=== PATIENT | male | born 1990 | race African-American/Black ===

== ENCOUNTER 2016-11-09 00:26 | Emergency (ER) | payer OTHER ==
[2016-11-09] MEDS ORDERED: Aspirin Low Dose CHEW TAB* 81 MG PO ONE (00:43)
--- NOTE | 2016-11-09 00:45 | ED ---
Araceli Griffith Erika, scribed for Marshall Valladares MD on 11/09/16 at 0045 . HPI Chest Pain - HPI Summary HPI Summary: Patient is a 26-year-old male presenting to the ED with a CC of constant chest pain for the past 10-12 hours. Patient reports that chest pain radiates into the left posterior shoulder blade and the left arm. Patient states he came in today because pain has never lasted this long before. 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 - History of Current Complaint Chief Complaint: EDChestPainROMI Time Seen by Provider: 11/09/16 00:40 Hx Obtained From: Patient Onset/Duration: Started Hours Ago, Atraumatic, Still Present Timing: Constant Current Severity: Moderate Pain Intensity: 9 Pain Scale Used: 0-10 Numeric Chest Pain Radiates: Yes Chest Pain Radiates To:: Shoulder - L, Arm - L Alleviating Factor(s): Nothing Associated Signs and Symptoms: Positive: Negative - Allergy/Home Medications Allergies/Adverse Reactions: Allergies Allergy/AdvReac Type Severity Reaction Status Date / Time Shellfish Allergy Allergy Severe Anaphylatic Verified 06/24/16 18:01 Shock Bee Venom Allergy Intermediate Swelling Verified 06/24/16 18:01 PMH/Surg Hx/FS Hx/Imm Hx Endocrine/Hematology History: Denies: Hx Diabetes, Hx Thyroid Disease Cardiovascular History: Reports: Hx Hypertension - MEDICATED Denies: Hx Congestive Heart Failure, Hx Deep Vein Thrombosis, Hx Myocardial Infarction, Hx Pacemaker/ICD Respiratory History: Denies: Hx Asthma, Hx Chronic Obstructive Pulmonary Disease (COPD), Hx Lung Cancer, Hx Pneumonia, Hx Pulmonary Embolism GI History: Denies: Hx Gall Bladder Disease, Hx Gastrointestinal Bleed, Hx Ulcer, Hx Urosepsis, Other GI Disorders History: Denies: Hx Kidney Stones, Hx Renal Disease, Other Problems/Disorders Sensory History: Denies: Hx Contacts or Glasses Opthamlomology History: Denies: Hx Contacts or Glasses Neurological History: Denies: Hx Dementia, Hx Migraine, Hx Seizures, Hx Transient Ischemic Attacks (TIA) Psychiatric History: Denies: Hx Anxiety, Hx Depression, Hx Schizophrenia, Hx Bipolar Disorder Infectious Disease History: No Infectious Disease History: Denies: Hx Clostridium Difficile, Hx Hepatitis, Hx Human Immunodeficiency Virus (HIV), Hx of Known/Suspected MRSA, Hx Shingles, Hx Tuberculosis, Hx Known/ Suspected VRE, Hx Known/Suspected VRSA, History Other Infectious Disease, Traveled Outside the [place] in Last 30 Days - Family History Known Family History: Positive: Hypertension - Social History Alcohol Use: Occasionally Hx Substance Use: No Substance Use Type: Reports: None Hx Tobacco Use: Yes Smoking Status (MU): Former Smoker Type: Cigarettes Amount Used/How Often: 1 cigarette/ day Length of Time of Smoking/Using Tobacco: 2014 Have You Smoked in the Last Year: Yes Review of Systems Negative: Fever Positive: Chest Pain - radiating into L arm and L shoulder All Other Systems Reviewed And Are Negative: Yes Physical Exam Triage Information Reviewed: Yes Vital Signs On Initial Exam: Initial Vitals Temp Pulse Resp BP Pulse Ox 97.6 F 70 18 143/101 100 11/09/16 00:28 11/09/16 00:28 11/09/16 00:28 11/09/16 00:28 11/09/16 00:28 Vital Signs Reviewed: Yes Appearance: Positive: Well-Appearing, No Pain Distress Skin: Positive: Warm Head/Face: Positive: Normal Head/Face Inspection Eyes: Positive: DARLYN ENT: Positive: Hearing grossly normal Neck: Positive: Supple Respiratory/Lung Sounds: Positive: Clear to Auscultation, Breath Sounds Present Cardiovascular: Positive: RRR. Negative: Murmur Abdomen Description: Positive: Nontender, Soft Bowel Sounds: Positive: Present Musculoskeletal: Positive: Strength/ROM Intact Neurological: Positive: Sensory/Motor Intact, Alert, Oriented to Person Place, Time Psychiatric: Positive: Affect/Mood Appropriate Diagnostics - Vital Signs Vital Signs Temp Pulse Resp BP Pulse Ox 11/09/16 00:28 97.6 F 70 18 143/101 100 - Laboratory Result Diagrams: 11/09/16 00:43 11/09/16 00:43 Lab Statement: Any lab studies that have been ordered have been reviewed, and results considered in the medical decision making process. 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 negative for thoracic aortic aneurysm or dissection. vague patchy infiltrates/pneumonitis noted in the right upper lobe. - EKG 00:37 Cardiac Rate: NL - at 68 bpm EKG Rhythm: Sinus Rhythm Re-Evaluation - Re-Evaluation First Eval Re-Evaluation Time: 02:37 Change: Improved Comment: Discussed imaging and lab results with patient. Agreeable with discharge. Chest Pain Course/Dx - Course Assessment/Plan: Patient is a 26 y/o M who presents to the ED with a CC of chest pain. CXR shows no acute findings. EKG shows NSR. D dimer is elevated at 758, so Chest CTA is ordered. CTA shows no PE. Pain significantly improves after morphine in the ED. Patient will be discharged home with follow up from his PCP. Patient is agreeable with this plan. - Diagnoses Provider Diagnoses: Chest pain Discharge - Discharge Plan Condition: Stable Disposition: HOME Patient Education Materials: Chest Pain (ED) Referrals: Joce Barnes MD [Primary Care Provider] - Additional Instructions: Please follow up with your PCP The documentation as recorded by the Araceli adle Erika accurately reflects the service I personally performed and the decisions made by me, Marshall Valladares MD.
[2016-11-09 00:53] LABS: Hematocrit 43 % (42-52); Hemoglobin 14.3 g/dl (14.0-18.0); Mean Corpuscular HGB Conc 33 g/dl (31-36); Mean Corpuscular Hemoglobin 27 pg (27-31); Mean Corpuscular Volume 83 fL (80-94); Mean Platelet Volume 10 um3 (7.4-10.4); Red Blood Count 5.22 10^6/ul (4.0-5.4); Red Cell Distribution Width 14 % (10.5-15); White Blood Count 7.2 10^3/ul (3.5-10.8)
[2016-11-09 00:55] LABS: Add Diff/Slide Review? Slide Review Added; Comments Flag Yes
[2016-11-09 01:09] LABS: Albumin 4.7 g/dL (3.2-5.2); BUN/Creatinine Ratio 8.9 (8-20); Calcium 9.8 mg/dL (8.6-10.3); EGFR African American 101.1 (>60); EGFR Non-African American 78.6 (>60); Globulin 3.2 g/dL (2-4); Potassium 3.8 mmol/L (3.5-5.0); Total Bilirubin 0.3 mg/dL (0.2-1.0); Total Protein 7.9 g/dL (6.4-8.9)
[2016-11-09 01:11] LABS: Troponin I 0.01 ng/mL (<0.04)
[2016-11-09] MEDS ORDERED: Iohexol 350* (CONTRAST) 500 ML MDV IV ONE (01:17)
[2016-11-09] MEDS ORDERED: Morphine INJ* 4 MG/ML 1 ML SYRINGE IV ONE (02:08)
[2016-11-09 02:48] VITALS: BP 139/101
--- NOTE | 2016-11-09 07:29 | RAD ---
INDICATION: Chest pain. COMPARISON: Comparison is made with a prior x-ray study from June 24, 2015. TECHNIQUE: Dual-energy PA and lateral views of the chest were obtained. FINDINGS: The heart is within normal limits in size. Mediastinal and hilar contours appear within normal limits. The lungs are clear. No pleural effusion is present. There is a [id number] dorsal scoliosis. IMPRESSION: NO EVIDENCE FOR ACTIVE CARDIOPULMONARY DISEASE.
--- NOTE | 2016-11-09 07:47 | RAD ---
INDICATION: Chest pain, elevated d-dimer. COMPARISON: Comparison is made with a prior CT angiogram of the chest from May 12, 2011, prior CT of the chest from November 07, 2016 and prior chest x-ray study from November 09, 2016. TECHNIQUE: A CT angiogram of the chest was performed with intravenous following intravenous injection of 74 ml of Omnipaque 350 nonionic contrast. Contiguous axial sections were obtained from the lung apices through the lung bases. Images were reconstructed in the coronal and sagittal planes. FINDINGS: There is relatively homogeneous opacification of the pulmonary arteries. No intraluminal filling defect or pulmonary embolism is seen. The heart is within normal limits in size. No pericardial effusion is present. There is mild ectasia of the proximal ascending aorta which is unchanged from the recent prior study. The aorta demonstrates homogeneous contrast opacification. There is no evidence for aortic dissection. No significant enlarged mediastinal or hilar lymph nodes are seen. There are patchy groundglass infiltrates present in the right upper lobe which are unchanged from the recent prior study. The lungs are otherwise clear. No pleural effusion is present. There is a ycqc-[id number]-kdatklow dorsal lumbar scoliosis. IMPRESSION: 1. NO EVIDENCE FOR PULMONARY EMBOLISM. 2. MILD ECTASIA OF THE PROXIMAL ASCENDING AORTA, UNCHANGED. 3. PATCHY GROUNDGLASS INFILTRATES IN THE RIGHT UPPER LOBE MOST CONSISTENT WITH PNEUMONIA. SUGGEST CLINICAL CORRELATION AND FOLLOW-UP CHEST X-RAYS TO RESOLUTION.
== END 2016-11-09 02:46 | disposition home or self-care (01) ==
LOC: ED 00:26
DX: R07.9 Chest pain, unspecified (principal); M25.512 Pain in left shoulder; Z87.891 Personal history of nicotine dependence
CPT/HCPCS: 36415; 71020; 71275; 80053; 83605; 83735; 84484; 85025; 85379; 93005; 96374; 99283; A9270-GY; J2270; Q9967

== ENCOUNTER 2017-05-15 09:42 | Emergency (ER) | payer SELFPAY | END 2017-05-15 10:10 | disposition left against medical advice (07) | LOC: UCEAST 09:42 | DX: Z53.21 Procedure and treatment not carried out due to patient leaving prior to being seen by health care provider (principal) ==

== ENCOUNTER 2017-09-27 15:14 | Emergency (ER) | payer OTHER ==
[2017-09-27 16:01] VITALS: BP 128/85
--- NOTE | 2017-09-27 16:11 | UC ---
Skin Complaint HPI - HPI Summary HPI Summary: Pt presents with swelling on penis since last night. He tells me that he was having intercourse with his and they tried a new lubrication. Later that night pt had penile swelling. No redness or pain. This morning the swelling was still present and he became concerned. Denies fever, chills, trouble urinating, dysuria, hematuria, redness, or pain. - History of Current Complaint Chief Complaint: UCGU Time Seen by Provider: 09/27/17 16:11 Stated Complaint: PRIVATE ISSUE Hx Obtained From: Patient Onset/Duration: Sudden Onset Skin Exposure Onset/Duration: Hours Ago Timing: Constant Current Severity: None Pain Intensity: 0 - Allergy/Home Medications Allergies/Adverse Reactions: Allergies Allergy/AdvReac Type Severity Reaction Status Date / Time bee venom protein (honey bee) Allergy Swelling Verified 09/27/17 16:02 shellfish derived Allergy Anaphylatic Verified 09/27/17 16:02 Shock Review of Systems Constitutional: Negative Skin: Other - Swelling to penis ENT: Negative Respiratory: Negative Cardiovascular: Negative Gastrointestinal: Negative Neurological: Negative Psychological: Negative All Other Systems Reviewed And Are Negative: Yes PMH/Surg Hx/FS Hx/Imm Hx Previously Healthy: Yes Cardiovascular History: Hypertension Other History Of: Negative For: HIV, Hepatitis B, Hepatitis C - Surgical History Surgical History: None - Family History Known Family History: Positive: Unknown, Hypertension - Social History Occupation: Employed Full-time Lives: With Family Alcohol Use: Occasionally Substance Use Type: None Smoking Status (MU): Former Smoker Type: Cigarettes Amount Used/How Often: 1 cigarette/ day Length of Time of Smoking/Using Tobacco: 2015 Have You Smoked in the Last Year: Yes Household Exposure Type: Cigarettes Physical Exam Triage Information Reviewed: Yes Appearance: Well-Appearing, No Pain Distress, Well-Nourished Vital Signs: Initial Vital Signs Temp 98.6 F 09/27/17 15:58 Pulse 72 09/27/17 15:58 Resp 12 09/27/17 15:58 BP 128/85 09/27/17 15:58 Pulse Ox 100 09/27/17 15:58 Vital Signs Reviewed: Yes Neck: Positive: Supple, Nontender, No Lymphadenopathy Respiratory: Positive: Lungs clear, Normal breath sounds, No respiratory distress Cardiovascular: Positive: RRR, No Murmur, Pulses Normal Neurological: Positive: Alert Psychological: Positive: Age Appropriate Behavior - Additional Comments Genital exam: Foreskin of penis is with moderate edema. Circumcised. No erythema or skin breakdown. NTTP. No scrotal pain/masses, lesions, ulcerations, or penile discharge. Course/Dx - Course Course Of Treatment: Suspect contact dermatitis from recent lube use. Will place on 5 days of prednisone and advised to monitor for worsening symptoms - if so, go to ED. - Diagnoses Provider Diagnoses: Contact dermatitis penis Discharge - Discharge Plan Condition: Stable Disposition: HOME Prescriptions: predniSONE TAB* [Deltasone TAB*] 50 mg PO DAILY #5 tab Patient Education Materials: General Allergic Reaction (ED) Referrals: Joce Barnes MD [Primary Care Provider] - Additional Instructions: If you develop a fever, shortness of breath, chest pain, new or worsening symptoms - please call your PCP or go to the ED. 1) If you develop trouble urinating, increased swelling, discharge, redness, or bleeding - please go to the ER.
== END 2017-09-27 16:25 | disposition home or self-care (01) ==
LOC: UCEAST 15:14
DX: L25.8 Unspecified contact dermatitis due to other agents (principal); Z87.891 Personal history of nicotine dependence
CPT/HCPCS: 99212; G0463

== ENCOUNTER 2018-11-30 14:51 | Emergency (ER) | payer OTHER ==
[2018-11-30 15:00] VITALS: BP 160/105
--- NOTE | 2018-11-30 15:25 | UC ---
Throat Pain/Nasal Emanuel HPI - HPI Summary HPI Summary: 28 yo male with sore throat and fever x 2 days out of BP meds x mos no CP or sob, no LEO - History of Current Complaint Chief Complaint: UCGeneralIllness Stated Complaint: SORE THROAT, AND CHILLS Time Seen by Provider: 11/30/18 14:52 Hx Obtained From: Patient Onset/Duration: Gradual Onset Severity: Moderate Pain Intensity: 5 Pain Scale Used: 0-10 Numeric Cough: None Associated Signs & Symptoms: Positive: Fever - Epiglottits Risk Factors Epiglottis Risk Factors: Negative - Allergies/Home Medications Allergies/Adverse Reactions: Allergies Allergy/AdvReac Type Severity Reaction Status Date / Time bee venom protein (honey bee) Allergy Swelling Verified 11/30/18 15:00 shellfish derived Allergy Anaphylatic Verified 11/30/18 15:00 Shock Home Medications: Home Medications Acetaminophen [Tylenol] 2 tab PO ONCE PRN 11/30/18 [History Confirmed 11/30/18] amLODIPine TAB* [Norvasc 5 mg TAB*] 10 mg PO DAILY 11/30/18 [History Confirmed 11/30/18] PMH/Surg Hx/FS Hx/Imm Hx Previously Healthy: Yes Cardiovascular History: Hypertension Other History Of: Negative For: HIV, Hepatitis B, Hepatitis C - Surgical History Surgical History: None - Family History Known Family History: Positive: Hypertension - Social History Alcohol Use: Rare Substance Use Type: None Smoking Status (MU): Former Smoker Type: Cigarettes Amount Used/How Often: 1 cigarette/ day Length of Time of Smoking/Using Tobacco: 2015 Have You Smoked in the Last Year: Yes Household Exposure Type: Cigarettes Review of Systems All Other Systems Reviewed And Are Negative: Yes Constitutional: Positive: Fever, Chills Skin: Positive: Negative Eyes: Positive: Negative ENT: Positive: Sore Throat Respiratory: Positive: Negative Gastrointestinal: Positive: Negative Genitourinary: Positive: Negative Motor: Positive: Negative Musculoskeletal: Positive: Negative, Myalgia Neurological: Positive: Negative Psychological: Positive: Negative Physical Exam Triage Information Reviewed: Yes Appearance: Well-Appearing, No Pain Distress, Well-Nourished Vital Signs: Initial Vital Signs Temp 98.8 F 11/30/18 14:51 Pulse 104 11/30/18 14:51 Resp 18 11/30/18 14:51 BP 160/105 11/30/18 14:51 Pulse Ox 97 11/30/18 14:51 Vital Signs Reviewed: Yes Eyes: Positive: Conjunctiva Clear ENT: Positive: Hearing grossly normal, Pharyngeal erythema, Uvula midline. Negative: Nasal congestion, Nasal drainage, Tonsillar exudate, Trismus, Muffled voice, Hoarse voice Dental Exam: Normal Neck: Positive: Supple, Enlarged Nodes @ Respiratory: Positive: Lungs clear, Normal breath sounds, No respiratory distress Cardiovascular: Positive: RRR, No Murmur Abdominal Exam: Normal Musculoskeletal: Positive: ROM Intact, No Edema Neurological: Positive: Alert Psychological Exam: Normal Skin Exam: Normal Throat Pain/Nasal Course/Dx - Course Course Of Treatment: strep + - Differential Dx/Diagnosis Provider Diagnosis: Strep throat, Hypertension Discharge - Sign-Out/Discharge Documenting (check all that apply): Patient Departure All imaging exams completed and their final reports reviewed: No Studies - Discharge Plan Condition: Stable Disposition: HOME Prescriptions: Amlodipine Besylate [Norvasc] 10 mg PO DAILY #30 tablet Amoxicillin PO (*) [Amoxicillin 875 MG (*)] 875 mg PO BID #20 tab Lisinopril TAB* [Prinivil TAB 10 MG*] 20 mg PO DAILY #30 tab Patient Education Materials: Strep Throat (ED) Forms: *Work Release Referrals: [facility] [Outside] - 2 Weeks - Billing Disposition and Condition Condition: STABLE Disposition: Home
== END 2018-11-30 15:30 | disposition home or self-care (01) ==
LOC: UCEAST 14:51
DX: J02.0 Streptococcal pharyngitis (principal); I10 Essential (primary) hypertension; Z91.030 Bee allergy status; Z91.013 Allergy to seafood; Z87.891 Personal history of nicotine dependence
CPT/HCPCS: 87651; 99212; G0463

== ENCOUNTER 2018-12-19 20:47 | Emergency (ER) | payer OTHER ==
[2018-12-19] MEDS ORDERED: Lidocaine 2% VISCOUS* 15 ML UDC PO ONE (22:13)
[2018-12-19] MEDS ORDERED: Al Hydrox/Mg Hydrox/Simet LIQ* 30 ML UDC PO ONE (22:13)
[2018-12-19] MEDS ORDERED: Pantoprazole TAB * 40 MG TAB PO ONE (22:14)
--- NOTE | 2018-12-19 22:14 | ED ---
HPI Chest Pain - HPI Summary HPI Summary: This patient is a 28 year old M presenting to [facility] with a chief complaint of midsternal chest pain radiating to the back since 1700 last night that worsens with swallowing and laying down. Pain rated 7/10 in severity. Reports nausea. Denies SOB and vomiting. Symptoms improved with acid reflux medication. PMHx of HTN. Patient had 81mg ASA today. - History of Current Complaint Chief Complaint: EDChestPainROMI Time Seen by Provider: 12/19/18 22:06 Hx Obtained From: Patient Onset/Duration: Started Hours Ago Time of Onset: 17:00 Timing: Constant Pain Intensity: 7 Pain Scale Used: 0-10 Numeric Chest Pain Location: Mid Sternal Chest Pain Radiates: Yes Chest Pain Radiates To:: Back Aggravating Factor(s): Recumbent Position, Other: - swallowing Alleviating Factor(s): OTC Meds Associated Signs and Symptoms: Positive: Chest Pain, Nausea. Negative: Shortness of Breath, Vomiting - Allergy/Home Medications Allergies/Adverse Reactions: Allergies Allergy/AdvReac Type Severity Reaction Status Date / Time bee venom protein (honey bee) Allergy Swelling Verified 11/30/18 15:00 shellfish derived Allergy Anaphylatic Verified 11/30/18 15:00 Shock PMH/Surg Hx/FS Hx/Imm Hx Endocrine/Hematology History: Denies: Hx Diabetes, Hx Thyroid Disease Cardiovascular History: Reports: Hx Hypertension Denies: Hx Congestive Heart Failure, Hx Deep Vein Thrombosis, Hx Myocardial Infarction, Hx Pacemaker/ICD Respiratory History: Denies: Hx Asthma, Hx Chronic Obstructive Pulmonary Disease (COPD), Hx Lung Cancer, Hx Pneumonia, Hx Pulmonary Embolism GI History: Denies: Hx Gall Bladder Disease, Hx Gastrointestinal Bleed, Hx Ulcer, Hx Urosepsis, Other GI Disorders History: Denies: Hx Kidney Stones, Hx Renal Disease, Other Problems/Disorders Sensory History: Denies: Hx Contacts or Glasses Opthamlomology History: Denies: Hx Contacts or Glasses Neurological History: Denies: Hx Dementia, Hx Migraine, Hx Seizures, Hx Transient Ischemic Attacks (TIA) Psychiatric History: Denies: Hx Anxiety, Hx Depression, Hx Schizophrenia, Hx Bipolar Disorder - Immunization History Date of Tetanus Vaccine: unk Date of Influenza Vaccine: none Infectious Disease History: No Infectious Disease History: Denies: Hx Clostridium Difficile, Hx Hepatitis, Hx Human Immunodeficiency Virus (HIV), Hx of Known/Suspected MRSA, Hx Shingles, Hx Tuberculosis, Hx Known/ Suspected VRE, Hx Known/Suspected VRSA, History Other Infectious Disease, Traveled Outside the [place] in Last 30 Days - Family History Known Family History: Positive: Hypertension - Social History Alcohol Use: Rare Hx Substance Use: No Substance Use Type: Reports: None Hx Tobacco Use: Yes Smoking Status (MU): Former Smoker Type: Cigarettes Amount Used/How Often: 1 cigarette/ day Length of Time of Smoking/Using Tobacco: 2014 Have You Smoked in the Last Year: Yes Review of Systems Positive: Chest Pain Negative: Shortness Of Breath Positive: Nausea. Negative: Vomiting All Other Systems Reviewed And Are Negative: Yes Physical Exam - Summary Physical Exam Summary: VITAL SIGNS: Reviewed. GENERAL: Patient is a well-developed and nourished male who is lying comfortable in the stretcher. Patient is not in any acute respiratory distress. HEAD AND FACE: No signs of trauma. No ecchymosis, hematomas or skull depressions. No sinus tenderness. EYES: PERRLA, EOMI x 2, No injected conjunctiva, no nystagmus. EARS: Hearing grossly intact. Ear canals and tympanic membranes are within normal limits. MOUTH: Oropharynx within normal limits. NECK: Supple, trachea is midline, no adenopathy, no JVD, no carotid bruit, no c- spine tenderness, neck with full ROM CHEST: Symmetric, no tenderness at palpation LUNGS: Clear to auscultation bilaterally. No wheezing or crackles. CVS: Regular rate and rhythm, S1 and S2 present, no murmurs or gallops appreciated. ABDOMEN: Soft, non-tender. No signs of distention. No rebound no guarding, and no masses palpated. Bowel sounds are normal. EXTREMITIES: FROM in all major joints, no edema, no cyanosis or clubbing. NEURO: Alert and oriented x 3. No acute neurological deficits. Speech is normal and follows commands. SKIN: Dry and warm Triage Information Reviewed: Yes Vital Signs On Initial Exam: Initial Vitals Temp Pulse Resp BP Pulse Ox 97.6 F 80 18 159/97 99 12/19/18 20:50 12/19/18 20:50 12/19/18 20:50 12/19/18 20:50 12/19/18 20:50 Vital Signs Reviewed: Yes Diagnostics - Vital Signs Vital Signs Temp Pulse Resp BP Pulse Ox 12/19/18 20:50 97.6 F 80 18 159/97 99 - Laboratory Result Diagrams: 12/19/18 22:26 12/19/18 22:26 Lab Statement: Any lab studies that have been ordered have been reviewed, and results considered in the medical decision making process. - EKG 2057 Cardiac Rate: NL - 67 BPM EKG Rhythm: Sinus Rhythm Summary of EKG Findings: Normal axis. Normal interval. No ischemic changes Chest Pain Course/Dx - Course Course Of Treatment: 28 year old M with a chief complaint of midsternal chest pain radiating to the back since 1700 last night that worsens with swallowing and laying down. Symptoms improved with acid reflux medication. Patient is given Protonix, viscous lidocaine, and Maalox with improved symptoms. Bloodwork is WNL. Patient is given a rx for Protonix and will be discharged home. Patient is agreeable with this plan. - Diagnoses Provider Diagnoses: Atypical chest pain, Acid reflux Discharge - Sign-Out/Discharge Documenting (check all that apply): Patient Departure - discharge Patient Received Moderate/Deep Sedation with Procedure: No - Discharge Plan Condition: Good Disposition: HOME Prescriptions: Pantoprazole TAB * [Protonix TAB*] 40 mg PO DAILY #30 tab Patient Education Materials: Chest Pain (ED), Gastroesophageal Reflux Disease ( ED) Referrals: No Primary Care Phys,NOPCP [Primary Care Provider] - [facility] [place] [facility] [Outside] - 2 Weeks (Contact the [facility] Physician referral number to set up care with a primary provider. ) Additional Instructions: RETURN TO THE EMERGENCY DEPARTMENT FOR CHANGING OR WORSENING SYMPTOMS. - Billing Disposition and Condition Condition: GOOD Disposition: Home - Attestation Statements Document Initiated by Varun: Yes Documenting Scribe: Rachael Horner Provider For Whom Varun is Documenting (Include Credential): Brittaney Murillo MD Scribe Attestation: Rachael Griffith, evonneed for Brittaney Murillo MD on 12/20/18 at 0350. Scribe Documentation Reviewed: Yes Provider Attestation: The documentation as recorded by the Rachael dale accurately reflects the service I personally performed and the decisions made by me, Brittaney Murillo MD Status of Scribe Document: Viewed
[2018-12-19 22:38] LABS: Hematocrit 43 % (42-52); Mean Corpuscular HGB Conc 33 g/dL (31-36); Mean Corpuscular Hemoglobin 28 pg (27-31); Mean Corpuscular Volume 84 fL (80-94); Mean Platelet Volume 9.8 fL (7.4-10.4); Platelet Count 165 10^3/uL (150-450); Red Cell Distribution Width 14 % (10.5-15); White Blood Count 5.3 10^3/uL (3.5-10.8)
[2018-12-19 22:50] LABS: Albumin 4.6 g/dL (3.2-5.2); Albumin/Globulin Ratio 1.4 (1-3); BUN/Creatinine Ratio 11.6 (8-20); Calcium 9.9 mg/dL (8.6-10.3); EGFR African American 113.4 (>60); EGFR Non-African American 93.7 (>60); Globulin 3.4 g/dL (2-4); Potassium 3.8 mmol/L (3.5-5.0); Total Bilirubin 0.4 mg/dL (0.2-1.0)
[2018-12-19 22:52] LABS: Troponin I 0.01 ng/mL (<0.04)
[2018-12-19 23:23] LABS: ABS Eosinophils 0.3 10^3/ul (0-0.6); ABS Lymphocytes 1.6 10^3/ul (1.0-4.8); ABS Monocytes 0.5 10^3/ul (0-0.8); ABS Neutrophils 2.8 10^3/ul (1.5-7.7); Eosinophil % 5.7 %; Lymphocyte % 31.1 %; Nucleated Red Blood Cells % 0.1
[2018-12-19 23:58] VITALS: BP 120/84
== END 2018-12-19 23:56 | disposition home or self-care (01) ==
LOC: ED 20:47
DX: K21.9 Gastro-esophageal reflux disease without esophagitis (principal); R07.89 Other chest pain; R11.0 Nausea; I10 Essential (primary) hypertension; Z87.891 Personal history of nicotine dependence
CPT/HCPCS: 36415; 80053; 82150; 83690; 84484; 85025; 93005; 99283; A9270-GY

== ENCOUNTER 2018-12-23 18:59 | Emergency (ER) | payer OTHER ==
[2018-12-23 19:10] VITALS: BP 150/99
--- NOTE | 2018-12-23 19:29 | UC ---
Cardiac HPI - HPI Summary HPI Summary: 28 yo with uncontrolled hypertension, hs been off meds until about a month ago. Past triple treatment of HTN with lisinipril, amlodipine and metoprolol, presently on 2 meds withut adequate control. Smokes currently less than 1/2 ppd FH negative for early AZ. ER visit x 2 days ago, negative work up, no imaging, discharged with dx of reflux and started on pantoprazole. Sinde yesterday, increasing sharp sternal pain with radiation to the left scapular area, with mild dyspnea, no nausea or diaphoresis. States treated for angina in the past; has had past stress testing. Past imaging --CT in 2017 showed aortic root dilation. No current echo or evaluation, no longer under cardiogy care as he was discharged from the practice. No alcohol or other substances. - History of Current Complaint Chief Complaint: UCChestPain Stated Complaint: CHEST PAIN Time Seen by Provider: 12/23/18 19:23 Hx Obtained From: Patient Onset/Duration: Gradual Onset, Lasting Days - 1.5 Timing: Intermittent Episodes Lasting: Initial Severity: Moderate Current Severity: Moderate Pain Intensity: 5 Chest Pain Location: Mid Sternal Character: Tightness, Sharp/Stabbing Aggravating Factor(s): Exertion Alleviating Factor(s): Rest Associated Signs & Symptoms: Positive: Chest Pain, Anxiety, SOB - Risk Factors Pulmonary Embolism Risk Factors: Smoking Cardiac Risk Factors: Hypertension, Smoking Atrial Fibrillation: Negative - Allergy/Home Medications Allergies/Adverse Reactions: Allergies Allergy/AdvReac Type Severity Reaction Status Date / Time bee venom protein (honey bee) Allergy Swelling Verified 12/23/18 19:13 shellfish derived Allergy Anaphylatic Verified 12/23/18 19:13 Shock PMH/Surg Hx/FS Hx/Imm Hx Cardiovascular History: Cardiac Disease, Hypertension GI/ History: Gastroesophageal Reflux Psychological History: Anxiety Other History Of: Negative For: HIV, Hepatitis B, Hepatitis C - Surgical History Surgical History: None - Family History Known Family History: Positive: Hypertension, Diabetes, Other - father of brain cancer - Social History 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 [employer] Alcohol Use: Rare Substance Use Type: None Smoking Status (MU): Light Every Day Tobacco Smoker Type: Cigarettes Amount Used/How Often: 1 cigarette/ day Length of Time of Smoking/Using Tobacco: 2014 Have You Smoked in the Last Year: Yes Household Exposure Type: Cigarettes Review of Systems All Other Systems Reviewed And Are Negative: Yes Constitutional: Positive: Fatigue Eyes: Positive: Negative ENT: Positive: Negative Respiratory: Positive: Shortness Of Breath Cardiovascular: Positive: Chest Pain Gastrointestinal: Positive: Negative Genitourinary: Positive: Negative Neurovascular: Positive: Negative Neurological: Negative: Headache, Weakness Physical Exam Triage Information Reviewed: Yes Appearance: Ill-Appearing - uncomfortable resting on stretcher Vital Signs: Initial Vital Signs Temp 98 F 12/23/18 19:05 Pulse 93 12/23/18 19:05 Resp 16 12/23/18 19:05 BP 150/99 12/23/18 19:05 Pulse Ox 97 12/23/18 19:05 Eyes: Positive: Conjunctiva Clear ENT: Positive: Pharynx normal Dental Exam: Normal Neck: Positive: Supple, Nontender, No Lymphadenopathy Respiratory: Positive: Lungs clear, Normal breath sounds Cardiovascular: Positive: RRR, No Murmur Abdomen Description: Positive: Nontender, No Organomegaly, Soft Musculoskeletal Exam: Normal Neurological: Positive: Alert, Muscle Tone Normal Psychological Exam: Normal Skin Exam: Normal Diagnostics - EKG Cardiac Rate: NL Cardiac Rhythm: Sinus: Normal Ectopy: None ST Segment: Normal - Assessment/Plan Course Of Treatment: tranferred to ER due to level of pain, hx of under treated hypertension, and prior imaging showing aortic root dilation. - Differential Diagnoses - Chest Pain Differential Diagnosis/HQI/PQRI: Acute AZ, Aortic Aneurysm - Differential Diagnoses - Hypertension Differential Diagnosis/HQI PQRI: AAA, Angina - Clinical Impression Provider Diagnosis: Chest pain - Physician Notifications Time Discussed With Above Provider: 19:30 - spoke with Delmy Taylor re transfer Discharge - Sign-Out/Discharge Documenting (check all that apply): Patient Departure All imaging exams completed and their final reports reviewed: No Studies - Discharge Plan Condition: Stable Disposition: TRANS HIGHER LVL OF CARE FAC Referrals: No Primary Care Phys,NOPCP [Primary Care Provider] - - Billing Disposition and Condition Condition: STABLE Disposition: Trans Higher Lvl of Care Fac
== END 2018-12-23 19:49 | disposition short-term general hospital (02) ==
LOC: UCEAST 18:59
DX: R07.89 Other chest pain (principal); R06.02 Shortness of breath; F41.9 Anxiety disorder, unspecified; R53.83 Other fatigue; I10 Essential (primary) hypertension; Z91.030 Bee allergy status; Z91.013 Allergy to seafood; F17.210 Nicotine dependence, cigarettes, uncomplicated
CPT/HCPCS: 99213; G0463

== ENCOUNTER 2018-12-23 20:00 | Observation (INO) | payer OTHER ==
--- NOTE | 2018-12-23 20:25 | ED ---
HPI Chest Pain - HPI Summary HPI Summary: 28 year old M brought in by EMS from [facility] to [facility] with a chief complaint of sharp, constant chest pain radiating to his back since yesterday at 13:00, worse since this afternoon. The patient rates the pain 6/10 in severity. Symptoms aggravated by walking and movement. Symptoms alleviated by nothing. Patient denies shortness of breath. Patient has cardiac hx. Patient has had stress test before but is not sure of the results. He has been seen in the ED before for similar symptoms. Patient states he was recently discharged from Dr. Whittaker's, cardiology, office for no-show appointments. - History of Current Complaint Chief Complaint: EDChestPainROMI Time Seen by Provider: 12/23/18 20:16 Hx Obtained From: Patient Onset/Duration: Started Days Ago - 1, Still Present, Worse Since - this afternoon Timing: Constant Current Severity: Moderate Pain Intensity: 6 Pain Scale Used: 0-10 Numeric Chest Pain Radiates: Yes Chest Pain Radiates To:: Back Aggravating Factor(s): Movement, Other: - walking Alleviating Factor(s): Nothing - Allergy/Home Medications Allergies/Adverse Reactions: Allergies Allergy/AdvReac Type Severity Reaction Status Date / Time bee venom protein (honey bee) Allergy Swelling Verified 12/23/18 19:13 shellfish derived Allergy Anaphylatic Verified 12/23/18 19:13 Shock PMH/Surg Hx/FS Hx/Imm Hx Previously Healthy: No Endocrine/Hematology History: Denies: Hx Diabetes, Hx Thyroid Disease Cardiovascular History: Reports: Hx Angina, Hx Hypertension Denies: Hx Congestive Heart Failure, Hx Deep Vein Thrombosis, Hx Myocardial Infarction, Hx Pacemaker/ICD Respiratory History: Denies: Hx Asthma, Hx Chronic Obstructive Pulmonary Disease (COPD), Hx Lung Cancer, Hx Pneumonia, Hx Pulmonary Embolism GI History: Denies: Hx Gall Bladder Disease, Hx Gastrointestinal Bleed, Hx Ulcer, Hx Urosepsis, Other GI Disorders History: Denies: Hx Kidney Stones, Hx Renal Disease, Other Problems/Disorders Sensory History: Denies: Hx Contacts or Glasses Opthamlomology History: Denies: Hx Contacts or Glasses Neurological History: Denies: Hx Dementia, Hx Migraine, Hx Seizures, Hx Transient Ischemic Attacks (TIA) Psychiatric History: Reports: Hx Anxiety Denies: Hx Depression, Hx Schizophrenia, Hx Bipolar Disorder - Surgical History Surgery Procedure, Year, and Place: None - Immunization History Date of Tetanus Vaccine: unk Date of Influenza Vaccine: none Infectious Disease History: No Infectious Disease History: Denies: Hx Clostridium Difficile, Hx Hepatitis, Hx Human Immunodeficiency Virus (HIV), Hx of Known/Suspected MRSA, Hx Shingles, Hx Tuberculosis, Hx Known/ Suspected VRE, Hx Known/Suspected VRSA, History Other Infectious Disease, Traveled Outside the [place] in Last 30 Days - Family History Known Family History: Positive: Hypertension, Diabetes, Other - father of brain cancer - Social History Alcohol Use: Occasionally Hx Substance Use: Yes Substance Use Type: Reports: Cocaine Hx Tobacco Use: Yes Smoking Status (MU): Light Every Day Tobacco Smoker Type: Cigarettes Amount Used/How Often: 1 cigarette/ day Length of Time of Smoking/Using Tobacco: 2014 Have You Smoked in the Last Year: Yes Review of Systems Positive: Chest Pain Negative: Shortness Of Breath All Other Systems Reviewed And Are Negative: Yes Physical Exam - Summary Physical Exam Summary: VITAL SIGNS: Reviewed. GENERAL: Patient is a well-developed and nourished MALE who is lying comfortable in the stretcher. Patient is not in any acute respiratory distress. HEAD AND FACE: No signs of trauma. No ecchymosis, hematomas or skull depressions. No sinus tenderness. EYES: PERRLA, EOMI x 2, No injected conjunctiva, no nystagmus. EARS: Hearing grossly intact. Ear canals and tympanic membranes are within normal limits. MOUTH: Oropharynx within normal limits. NECK: Supple, trachea is midline, no adenopathy, no JVD, no carotid bruit, no c- spine tenderness, neck with full ROM CHEST: Symmetric, no tenderness at palpation LUNGS: Clear to auscultation bilaterally. No wheezing or crackles. CVS: Regular rate and rhythm, S1 and S2 present, no murmurs or gallops appreciated. ABDOMEN: Soft, non-tender. No signs of distention. No rebound no guarding, and no masses palpated. Bowel sounds are normal. EXTREMITIES: FROM in all major joints, no edema, no cyanosis or clubbing. NEURO: Alert and oriented x 3. No acute neurological deficits. Speech is normal and follows commands. SKIN: Dry and warm Triage Information Reviewed: Yes Vital Signs On Initial Exam: Initial Vitals Temp Pulse Resp BP Pulse Ox 99.3 F 82 13 127/85 97 12/23/18 20:04 12/23/18 20:04 12/23/18 20:04 12/23/18 20:04 12/23/18 20:04 Vital Signs Reviewed: Yes Diagnostics - Vital Signs Vital Signs Temp Pulse Resp BP Pulse Ox 12/23/18 20:04 99.3 F 82 13 127/85 97 - Laboratory Result Diagrams: 12/23/18 20:34 12/23/18 20:34 Lab Statement: Any lab studies that have been ordered have been reviewed, and results considered in the medical decision making process. - CT Chest/Thorax CTA CT Interpretation Completed By: Radiologist Summary of CT Findings: 1. No pulmonary emboli. 2. Right middle and lower lobe lung findings of respiratory bronchiolitis or atypical viral pneumonia. ED physician has reviewed this report. - EKG 2002 Cardiac Rate: NL - 76 BPM EKG Rhythm: Sinus Rhythm Ectopy: None Summary of EKG Findings: Normal axis. Normal interval. No ischemic changes. Re-Evaluation - Re-Evaluation First Eval Re-Evaluation Time: 23:13 Comment: Patient was told he will likely be admitted Chest Pain Course/Dx - Course Course Of Treatment: 28 year old M brought in by EMS from [facility] to [facility] with a chief complaint of sharp, constant chest pain radiating to his back since yesterday at 13:00, worse since this afternoon. In ED course, patient declined medication. EKG was normal. Chest/Thorax CTA shows, per radiologist, 1. No pulmonary emboli. 2. Right middle and lower lobe lung findings of respiratory bronchiolitis or atypical viral pneumonia. Test results with no significant abnormalities except for first troponin 0.07 and second troponin 0.01. Patient's , Elli, left her phone number which is [phone]. Spoke with Dr. Cruz, hospitalist, who agrees to admit patient. The patient will be admitted. The patient is agreeable to this plan. - Diagnoses Provider Diagnoses: Chest pain - Provider Notifications Discussed Care Of Patient With: Frannie Cruz Time Discussed With Above Provider: 23:15 Instructed by Provider To: Other - Dr. Cruz, hospitalist, agrees to admit patient Discharge - Sign-Out/Discharge Documenting (check all that apply): Patient Departure - Admit Patient Received Moderate/Deep Sedation with Procedure: No - Discharge Plan Condition: Stable Disposition: ADMITTED TO [facility] Referrals: No Primary Care Phys,NOPCP [Primary Care Provider] - - Attestation Statements Document Initiated by Scribe: Yes Documenting Scribe: Chrissy Rivera Provider For Whom Scribe is Documenting (Include Credential): Brittaney Murillo MD Scribe Attestation: Chrissy Griffith, scribed for Brittaney Murillo MD on 12/24/18 at 0001. Status of Scribe Document: Ready
[2018-12-23] MEDS ORDERED: Metoclopramide IV* 5 MG/ML 2 ML VIAL IV SLOW PU ONE (20:26)
[2018-12-23] MEDS ORDERED: Morphine 4 MG/ML VIAL (1 ml) 4 MG/ML VIAL IV ONE (20:26)
[2018-12-23 20:41] LABS: ABS Eosinophils 0.1 10^3/ul (0-0.6); ABS Lymphocytes 1.3 10^3/ul (1.0-4.8); ABS Monocytes 0.3 10^3/ul (0-0.8); ABS Neutrophils 3.7 10^3/ul (1.5-7.7); Eosinophil % 2.4 %; Hematocrit 38 % (42-52); Hemoglobin 12.8 g/dL (14.0-18.0); Lymphocyte % 23.3 %; Mean Corpuscular HGB Conc 34 g/dL (31-36); Mean Corpuscular Hemoglobin 28 pg (27-31); Mean Corpuscular Volume 82 fL (80-94); Mean Platelet Volume 9.7 fL (7.4-10.4); Nucleated Red Blood Cells % 0.1; Platelet Count 157 10^3/uL (150-450); Red Blood Count 4.61 10^6 /uL (4.18-5.48); Red Cell Distribution Width 14 % (10.5-15); White Blood Count 5.4 10^3/uL (3.5-10.8)
[2018-12-23 20:50] LABS: Activated Partial Thrombo Time 35.1 seconds (26.0-36.3); INR 1.1 (0.82-1.09)
[2018-12-23 21:04] LABS: ALT 12 U/L (7-52); AST 13 U/L (13-39); Albumin 4.3 g/dL (3.2-5.2); Albumin/Globulin Ratio 1.4 (1-3); Alkaline Phosphatase 63 U/L (34-104); Anion Gap 8 mmol/L (2-11); BUN/Creatinine Ratio 13.2 (8-20); Blood Urea Nitrogen 12 mg/dL (6-24); CO2 Carbon Dioxide 27 mmol/L (22-32); Calcium 9.7 mg/dL (8.6-10.3); Chloride 104 mmol/L (101-111); Creatine Kinase 160 U/L (10-223); EGFR African American 119.2 (>60); EGFR Non-African American 98.5 (>60); Globulin 3.1 g/dL (2-4); Glucose 83 mg/dL (70-100); Potassium 3.5 mmol/L (3.5-5.0); Sodium 139 mmol/L (135-145); Total Protein 7.4 g/dL (6.4-8.9)
[2018-12-23 21:22] LABS: Troponin I 0.07 ng/mL (<0.04)
[2018-12-23] MEDS ORDERED: Aspirin 81 mg CHEW TAB* 81 MG TAB.CHEW PO ONE (21:26)
[2018-12-23] MEDS ORDERED: Iohexol 350* (CONTRAST) 500 ML MDV IV ONE (21:28)
[2018-12-23] MEDS ORDERED: oxyCODONE/Acetamin 5/325 MG* TAB PO PRN (23:31)
[2018-12-23] MEDS ORDERED: Al Hydrox/Mg Hydrox/Simet LIQ* 30 ML UDC PO PRN (23:31)
[2018-12-23] MEDS ORDERED: Magnesium Hydroxide LIQ* 30 ML UDC PO PRN (23:31)
[2018-12-23 23:52] LABS: C Reactive Protein 9.93 mg/L (<8.01)
[2018-12-24 00:26] LABS: Influenza A Molecular NEGATIVE (Negative); Influenza B Molecular NEGATIVE (Negative)
--- NOTE | 2018-12-24 01:06 | HP ---
HISTORY AND PHYSICAL: DATE OF ADMISSION: 12/24/18 PRIMARY CARE PROVIDER: None. CHIEF COMPLAINT: Chest pain. HISTORY OF PRESENT ILLNESS: Justo Kim is a 28-year-old male with a history of hypertension, chronic kidney disease stage 2, who presented to the hospital complaining of chest pain. The patient stated that he had chest pain that was more like substernal burning 4 days ago when he presented to the ED and it went away after "they gave him a medicine for heartburn." He stated that for the past 48 hours he has been having sharp pain localized in the left upper chest radiating to the left shoulder, worse when he leans back. He denies any cough but he has had low-grade fevers. He was treated for strep throat 3 weeks ago. He presented to the hospital for evaluation. His troponin was noted to be 0.07. He is going to be placed on overnight observation with a diagnosis of chest pain, likely pneumonia according to CT of the chest and elevated troponin. PAST MEDICAL HISTORY: 1. History of hypertension. 2. History of chronic kidney disease, stage 2. 3. Obstructive sleep apnea, not on CPAP. 4. History of hospitalization in 2016 for unresponsiveness due to using mushrooms and alcohol intoxication. 5. History of echocardiogram obtained in 2017 which showed EF of 50% to 55% with trace tricuspid regurgitation. MEDICATIONS AT HOME: Include: 1. Amlodipine 10 mg daily. 2. Protonix 40 mg daily. 3. Lisinopril 20 mg daily. ALLERGIES: Honey bee and shellfish. FAMILY HISTORY: Positive for father who at the age of 44 secondary to breast cancer, mother with hypertension. 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 He lives with his girlfriend and 2 of their children 8 and 9-year-old. He smokes 3 cigarettes a day and he started smoking 3 years ago. He denies any alcohol or drug use. REVIEW OF SYSTEMS: Please see history of present illness. All the remaining 12 systems were reviewed with the patient and were otherwise negative. PHYSICAL EXAMINATION GENERAL: The patient is a pleasant 28-year-old male who is in no acute distress. Alert, awake, and oriented x3. VITAL SIGNS: Blood pressure of 127/85, heart rate of 82 and regular, respiratory rate 13, oxygen saturation 97% on room air, temperature 98.3. HEENT: Head: Atraumatic, normocephalic. Eyes: Pupils are equal and reactive to light and accommodation. Oropharynx clear. Mucosa moist. NECK: Supple. No JVD, no bruits bilaterally. RESPIRATORY: Clear to auscultation bilaterally apart from scant rhonchi in the right middle lung. CARDIOVASCULAR: Regular rate and rhythm. No murmur. ABDOMEN: Soft, nontender. Bowel sounds are present in all 4 quadrants. EXTREMITIES: There is no edema. Pulses are +2 bilaterally. No clubbing or cyanosis. NEUROLOGIC: On neuro evaluation, speech is clear. Cranial nerves II through XII grossly intact. Motor strength is 5/5 bilaterally. SKIN: On evaluation of the skin, no ecchymotic areas or rashes noted. DIAGNOSTIC STUDIES/LAB DATA: Sodium of 139, potassium 4.5, chloride 104, carbon dioxide 27, BUN 12, creatinine 0.91. Liver function tests unremarkable. Troponin of 0.07, increased to 0.1 three hours later. C-reactive protein of 9.9. Brain natriuretic peptide was 10. CBC: White blood cell count of 5.4, hemoglobin 12.8, hematocrit 39, and platelets of 157. CT angiogram of the chest, impression: "No pulmonary emboli. Right middle and lower lobe lung findings of respiratory bronchiolitis or atypical viral pneumonia." The patient's EKG showed normal sinus rhythm with a heart rate of 76 beats per minute. Pattern of LVH and early repolarization. ASSESSMENT AND PLAN: 1. Chest pain, somewhat atypical, sharp, positional with pneumonia on the CT. At this point, differential includes pericarditis versus coronary ischemia. I suspect pericarditis is more likely in this patient with pneumonia. The patient is going to have blood cultures obtained. He is not septic at admission. Ceftriaxone and azithromycin are going to be started. Troponins are going to be continued to be drawn as per protocol. He is going to be placed on telemetry monitored bed and echocardiogram was going to be obtained in the morning. I will ask cardiology service to see the patient in the morning for consultation. 2. In regards to the patient's tobacco use, the patient was counseled to quit for approximately 4 minutes during his ED stay. He is going to be placed on nicotine patch. 3. For DVT prophylaxis, the patient is low risk and ambulation is encouraged. 4. The patient's code status is full, and his surrogate is his girlfriend Elli Buckner. TIME SPENT: Approximately 65 minutes was spent on admission of this patient, more than half of that time was spent [id number] with the patient during the interview and physical exam. [id number]/[facility] #: [id number] HARMAN
[2018-12-24] MEDS ORDERED: cefTRIAXone(*) 1 GM in NS 0.9% 50 ML* 50 ML IVPB SCH (01:45)
[2018-12-24] MEDS ORDERED: diPHENhydraMINE PO* 25 MG PO PRN (03:01)
[2018-12-24] MEDS: Nicotine PATCH 14 MG/24 HR* PATCH TRANSDERM SCH (03:34)
[2018-12-24] MEDS: Azithromycin 500 mg/250 ml NS 500 MG/250 ML BAG IVPB SCH (03:38)
[2018-12-24] MEDS: NS 0.9% 1000 ML** 1,000 ML IV SCH ×2 (03:38→19:30)
[2018-12-24 03:43] LABS: Troponin I 0.06 ng/mL (<0.04)
[2018-12-24] MEDS: Acetaminophen TAB* 325 MG PO PRN ×2 (05:53→08:04)
[2018-12-24 06:24] LABS: Troponin I 0.05 ng/mL (<0.04)
[2018-12-24] MEDS ORDERED: Aspirin EC TAB* 325 MG PO SCH (09:00)
[2018-12-24 09:03] LABS: Hematocrit 36 % (42-52); Hemoglobin 11.9 g/dL (14.0-18.0); Mean Corpuscular HGB Conc 33 g/dL (31-36); Mean Corpuscular Hemoglobin 28 pg (27-31); Mean Corpuscular Volume 83 fL (80-94); Mean Platelet Volume 9.7 fL (7.4-10.4); Platelet Count 146 10^3/uL (150-450); Red Cell Distribution Width 14 % (10.5-15); White Blood Count 6.9 10^3/uL (3.5-10.8)
[2018-12-24 09:20] LABS: BUN/Creatinine Ratio 9.7 (8-20); Calcium 8.9 mg/dL (8.6-10.3); EGFR African American 116.2 (>60); EGFR Non-African American 96.1 (>60); Potassium 3.6 mmol/L (3.5-5.0)
--- NOTE | 2018-12-24 09:37 | ECHO ---
*[facility]* [place] [address] Fax #: [phone] Transthoracic Echocardiogram Patient: Kim, Height: 66 in / Justo Cao 167.6 cm : 1990 Weight: 164.7 lb / Study Date: 12/24/2018 74.8 kg Age: 28 BP: 115 / 85 Gender: M BMI/BSA: 26.6 kg/m^2 HR: 85 bpm / 1.84 m^2 *Tooth Cutter: * Kimberly Delgado [facility] *Referring Physician: * Frannie Cruz *Reading Physician: Champ Hill MD Indications: Chest Pain, unspecified. History: CKD, YODIT without CPAP. Risk factors: Hypertension. Conclusions Summary: 1. Left ventricle: The cavity size is normal. Wall thickness is mildly increased. Systolic function is normal. The estimated ejection fraction is 60-65%. Wall motion is normal; there are no regional wall motion abnormalities. 2. Right ventricle: The cavity size is normal. Systolic function is normal. Systolic pressure is within the normal range. 3. Left atrium: The atrium is normal in size. 4. Pericardium, extracardiac: There is no significant pericardial effusion. 5. No significant valvular abnormalities noted. Recommendations: None prior for comparison at time of interpretation. Study data: Transthoracic echocardiogram. Procedure: Transthoracic echocardiography was performed. Image quality was good. Complete 2D, spectral Doppler, and color flow Doppler. Location: [facility] Patient status: Inpatient. Rhythm: Normal sinus rhythm. Findings Left ventricle: The cavity size is normal. Wall thickness is mildly increased. Systolic function is normal. The estimated ejection fraction is 60-65%. Wall motion is normal; there are no regional wall motion abnormalities. Left ventricular diastolic function parameters are normal. Right ventricle: Well visualized. The cavity size is normal. Systolic function is normal. Systolic pressure is within the normal range. Ventricular septum: Well visualized. Left atrium: Well visualized. The atrium is normal in size. Right atrium: Well visualized. The atrium is normal in size. Atrial septum: Well visualized. Mitral valve: Well visualized. There is no evidence of stenosis. There is physiologic regurgitation. Aortic valve: Well visualized. The valve is trileaflet. The leaflets are normal thickness. There is no evidence of stenosis. There is no significant regurgitation. Tricuspid valve: Well visualized. The leaflets are normal thickness. There is no evidence of stenosis. There is physiologic regurgitation. Pulmonic valve: Well visualized. The leaflets are normal thickness. There is no evidence of stenosis. There is physiologic regurgitation. Aorta: The aorta is well visualized. Aortic arch: The aortic arch is appears normal. Pericardium: There is no significant pericardial effusion. Pulmonary arteries: Not well visualized. Systemic veins: Not well visualized. Measurements Left ventricle Value Ref Aortic valve Value Ref JEANNE, LAX 4.8 cm 4.2 - Peak v, S 1.66 m/sec ----- 5.8 VTI, S 32.4 cm ----- ESD, LAX 2.8 cm 2.5 - Mean grad, S 6.0 mm Hg ----- 4.0 Peak grad, S 11.0 mm Hg ----- FS, LAX 42 % 25 43 LVOT/AV, VTI ratio 0.71 ----- PW, ED, LAX (H) 1.1 cm 0.6 - BIANCA, VTI 2.46 cm^2 ----- 1.0 BIANCA, Vmax 2.83 cm^2 ----- FS 42 % Mid-wall FS 15 % -------- Mitral valve Value Ref PW, ED (H) 1.4 cm 0.6 - Peak E 0.94 m/sec ----- 1.0 Peak A 0.66 m/sec ----- PW/ID, ED 0.28 -------- Decel time 164 ms ----- E', lat za, TDI 13.3 cm/sec >=10.0 Peak grad, D 3.5 mm Hg - ---- E/e', lat za, TDI 7 -------- Peak E/A ratio 1.4 ---- - E', med za, TDI 8.7 cm/sec >=7.0 E/e', med za, TDI 11 -------- Pulmonic valve Value Ref E', avg, TDI 11.0 cm/sec -------- Peak v, S 1.1 m/sec ---- - E/e', avg, TDI 9 <=14 Peak grad, S 5.0 mm Hg - ---- LVOT Value Ref Tricuspid valve Value Ref Diam, S 2.10 cm -------- TR peak v 0.89 m/sec <=2.8 Area 3.5 cm^2 -------- Peak RV-RA grad, S 3 mm Hg ----- Peak margot, S 1.36 m/sec -------- Max TR margot 0.89 m/sec ----- VTI, S 23.0 cm -------- Peak grad, S 7 mm Hg -------- Aortic root Value Ref Mean grad, S 4 mm Hg -------- Root diam 3.2 cm <3.5 SV 80 ml -------- SV/bsa 43 ml/m^2 -------- Ascending aorta Value Ref AAo AP diam, S 3.0 cm ----- Ventricular septum Value Ref AAo AP diam/bsa, S 1.6 cm/m^2 ----- IVS, ED (H) 1.2 cm 0.6 - 1.0 Aortic arch Value Ref Arch diam 1.9 cm ----- Right ventricle Value Ref JEANNE, LAX 2.5 cm -------- Decending aorta Value Ref JEANNE minor ax, A4C 3.5 cm 1.9 - Brendan peak margot 0.93 m/sec ----- mid 3.5 Inferior vena cava Value Ref Left atrium Value Ref Diam 1.5 cm ----- ML dim, A4C 3.7 cm -------- SI dim, A4C 4.4 cm -------- Vol/bsa, ES, 1-p 20 ml/m^2 12 - 37 A4C Vol/bsa, ES, A/L 19 ml/m^2 16 - 34 Right atrium Value Ref SI dim, ES 4.7 cm 3.4 - 5.3 ML dim, ES, A4C 3.1 cm 2.6 - 4.4 SI dim, ES, A4C 4.7 cm 3.4 - 5.3 SI dim/bsa, ES, A4C 2.6 cm/m^2 1.8 - 3.0 Legend: (L) and (H) scooter values outside specified reference range. Prepared and electronically signed by Champ Kirby MD 12/24/2018 09:37
[2018-12-24 09:47] LABS: ABS Eosinophils 0.3 10^3/ul (0-0.6); ABS Lymphocytes 1.3 10^3/ul (1.0-4.8); ABS Monocytes 0.3 10^3/ul (0-0.8); Eosinophil % 4.5 %; Large Platelets Present; Lymphocyte % 18.6 %; Nucleated Red Blood Cells % 0.1
[2018-12-24] MEDS ORDERED: Colchicine* 0.6 MG TAB PO ONE (10:01)
[2018-12-24] MEDS ORDERED: Ketorolac INJ* 15 MG/ML 1 ML VIAL IV PUSH PRN (10:04)
--- NOTE | 2018-12-24 10:33 | CONSULT ---
Subjective Date of Service: 12/24/18 Interval History: Admission and consult Date: 12/24/18 Provider: Hospitalist CC: chest pain Reason for consult: chest pain HPI Mr. Kim is a 28 year old man with a history of hypertension who presents with chest pain.. He tells me he has had over a year of intermittent sharp central/left sided chest pain that radiates to his left trapezius region. It is worse with inspiration and movement but not better or worse directly by laying or sitting up. He was found with mildly elevated troponin and inflammatory markers. His CT scan sugggests a pneumonia on RML but his pain is on the opposite side and he has had no dyspnea, cough or sputum production. He has had a low grade fever. The most recent episode of chest pain has been ongoing for about 5 days. EKGs were unremarkable. Echo showed no pericardial effusion. He has no rub on exam. He did have a strep throat 3 weeks ago. Significant other is at bedside PAST MEDICAL HISTORY: 1. History of hypertension. 2. Obstructive sleep apnea, not on CPAP. MEDICATIONS AT HOME: Include: 1. Amlodipine 10 mg daily. 2. Protonix 40 mg daily. 3. Lisinopril 20 mg daily. ALLERGIES: Honey bee and shellfish. FAMILY HISTORY: Positive for father who at the age of 44 secondary to breast cancer, mother with hypertension. 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 He lives with his girlfriend and 2 of their children 8 and 9-year-old. He smokes 3 cigarettes a day and he started smoking 3 years ago. He denies any alcohol or drug use. Medications Active Medications: Acetaminophen (Tylenol Tab*) 650 mg PO Q4H PRN PRN Reason: FEVER/PAIN Last Admin: 12/24/18 05:53 Dose: 650 mg Al Hydrox/Mg Hydrox/Simethicone (Maalox Plus*) 30 ml PO Q6H PRN PRN Reason: INDIGESTION Last Admin: 12/24/18 08:26 Dose: 30 ml Colchicine (Colcrys*) 0.6 mg PO DAILY [facility] Diphenhydramine HCl (Benadryl Po*) 25 mg PO Q6H PRN PRN Reason: Allergy Symptoms Last Admin: 12/24/18 03:10 Dose: 25 mg Sodium Chloride (Ns 0.9% 1000 Ml) 1,000 mls @ 75 mls/hr IV PER RATE [facility] Last Admin: 12/24/18 03:38 Dose: 75 mls/hr Azithromycin (Zithromax 500 Mg/250 Ml) 500 mg in 250 mls @ 250 mls/hr IVPB Q24H [facility] Last Admin: 12/24/18 03:38 Dose: 250 mls/hr Ibuprofen (Motrin Tab*) 600 mg PO Q8H [facility] Ketorolac Tromethamine (Toradol Inj*) 15 mg IV PUSH Q6H PRN PRN Reason: PAIN Magnesium Hydroxide (Milk Of Magnesia Liq*) 30 ml PO Q4H PRN PRN Reason: CONSTIPATION Nicotine (Nicotine Patch 14 Mg/24 Hr*) 1 patch TRANSDERM 0900 [facility] Last Admin: 12/24/18 03:34 Dose: 1 patch Pharmacy Profile Note (Nicotine Patch Removal Note*) 1 note PATCH OFF 2100 [facility] Home Medications: Lisinopril TAB* [Prinivil TAB 10 MG*] 20 mg PO DAILY #30 tab 11/30/18 [Rx Confirmed 12/23/18] amLODIPine TAB* [Norvasc 5 mg TAB*] 10 mg PO DAILY 11/30/18 [History Confirmed 12/23/18] Pantoprazole TAB * [Protonix TAB*] 40 mg PO DAILY #30 tab 12/19/18 [Rx Confirmed 12/23/18] Review of Systems - Measurements Intake and Output: Intake and Output Last 24 Hours 12/22/18 12/23/18 12/24/18 12/25/18 06:59 06:59 06:59 06:59 Intake Total 423 Balance 423 Weight 165 lb 2.02 oz Intake: IV Fluids 153 NS 103 IVPB 270 Azithromycin 270 Other: # Voids 0 - Review of Systems Constitutional Symptoms: Positive: Fever Negative: Weight Gain, Weight Loss, Weakness, Fatigue, Night Sweats, Unexplained Falls Dermatology: Negative: Normal, Rash, Skin Lesions HEENT: Negative: Change in Hearing, Vertigo Eyes: Negative: Change in Vision, Double Vision Thyroid: Negative: Goiter, Thyroid Nodule, Cold Intolerance, Heat Intolerance, Sweatiness, Tremor, Frequent Defecation, Constipation, Palpitations, Primary Hypothyroidism, Primary Hyperthyroidism, Weight Loss, Weight Gain, Change in Skin/Hair Pulmonary: Negative: Cough, Sputum, Hemoptysis, Wheezing, Respiratory Distress, Shortness of Breath, COPD, Exercise Intolerance Cardiology: Positive: Chest Pain Negative: Shortness of Breath, Palpitations, Swelling of Ankles, Peripheral Vascular Dis, Edema, Faintness, Syncope, Claudication, Paroxysmal Nocturnal Dyspnea, Orthopnea Gastroenterology: Negative: Vomiting, Anorexia, Indigestion, Difficulty Swallowing, Heartburn, Diarrhea, Blood in Stools, Change in Bowel Habits Genital - Urinary: Negative: Dysuria, Hematuria, Nocturia Musculoskeletal: Negative: Joint Pain, Joint Stiffness Endocrinology: Negative: Obesity, Diabetes Hematologic/Lymphatic: Negative: Hx Leukemia, Hx Lymphoma Neurology: Negative: Hx of Stroke\TIA, Hx Seizures Psychiatry: Negative: Adhedonia, Suicidal Ideation Allergic/Immunologic: Negative: Hx HIV, Immunocompromise Review of Systems Statement: All other review of systems negative, unless stated above. Objective Vital Signs: Temp Pulse Resp BP Pulse Ox 99.1 F 69 14 115/85 100 12/24/18 07:00 12/24/18 06:02 12/24/18 06:02 12/24/18 06:00 12/24/18 06:02 Oxygen Devices in Use Now: None Appearance: nad, not toxic appearing Ears/Nose/Mouth/Throat: Clear Oropharnyx, Mucous Membranes Moist Neck: NL Appearance and Movements; NL JVP, Trachea Midline Respiratory: Symmetrical Chest Expansion and Respiratory Effort, Clear to Auscultation Cardiovascular: NL Sounds; No Murmurs; No JVD, RRR, No Edema Abdominal: NL Sounds; No Tenderness; No Distention Extremities: No Edema Skin: No Rash or Ulcers Neurological: Alert and Oriented x 3 Laboratory Results: 12/24/18 08:45 12/24/18 08:45 INR (Anticoag Therapy) 1.10 (0.82-1.09) H 12/23/18 20:34 APTT 35.1 seconds (26.0-36.3) 12/23/18 20:34 Total Bilirubin 0.30 mg/dL (0.2-1.0) 12/23/18 20:34 AST 13 U/L (13-39) 12/23/18 20:34 ALT 12 U/L (7-52) 12/23/18 20:34 Alkaline Phosphatase 63 U/L (34-104) 12/23/18 20:34 B-Natriuretic Peptide 10 pg/mL (<=100) 12/23/18 20:34 Total Protein 7.4 g/dL (6.4-8.9) 12/23/18 20:34 Albumin 4.3 g/dL (3.2-5.2) 12/23/18 20:34 Globulin 3.1 g/dL (2-4) 12/23/18 20:34 Albumin/Globulin Ratio 1.4 (1-3) 12/23/18 20:34 12/23/18 12/23/18 12/24/18 20:34 23:19 03:12 Troponin I 0.07 H* 0.10 H* 0.06 H* 12/24/18 05:50 Troponin I 0.05 H* Diagnostic Imaging: CT Angiography Chest With Contrast 12/23/2018 9:52 PM FINDINGS: Pulmonary arteries: Pulmonary arteries are well opacified to the subsegmental branches. Normal caliber main pulmonary artery. No filling defects throughout the pulmonary artery tree. Aorta: Normal caliber aorta with no evidence of dissection or rupture. Thyroid: No thyroid nodules. Lungs: Centrilobular groundglass nodules basilar segment right lower lobe and inferior right middle lobe. Dependent atelectasis posterior left lower lobe. No consolidation or masses. Mild parabronchial thickening right middle and lower lobes. No bronchiectasis. Pleural space: Normal. No pneumothorax. No pleural effusion. Heart: Normal. No cardiomegaly. No pericardial effusion. Lymph nodes: Normal. No enlarged lymph nodes. IMPRESSION: 1. No pulmonary emboli. 2. Right middle and lower lobe lung findings of respiratory bronchiolitis or atypical viral pneumonia. Transthoracic Echocardiogram Study Date: 12/24/2018 Conclusions Summary: 1. Left ventricle: The cavity size is normal. Wall thickness is mildly increased. Systolic function is normal. The estimated ejection fraction is 60-65%. Wall motion is normal; there are no regional wall motion abnormalities. 2. Right ventricle: The cavity size is normal. Systolic function is normal. Systolic pressure is within the normal range. 3. Left atrium: The atrium is normal in size. 4. Pericardium, extracardiac: There is no significant pericardial effusion. 5. No significant valvular abnormalities noted. EKG Data: ekg's this admission show nsr, early repolarization pattern grossly unchanged from prior. Assessment/Plan By history and lab work patient has recurrent pericarditis. Reviewing prior cardiology notes 2017 Dr. Mauser and lab records which confound certainty of diagnosis is previous chest discomfort and inflammatory markers were previously elevated atlhough the chest discomfort then is much different than his current pain. I am not convinced he has an infectious pneumonia but the other consideration is myocyte injury related to this and hypertensive heart disease. Hold lisinopril, start ibuprofen 600 mg po tid with rapid taper and PRN toradol (ordered) Can continue amlodipine Colchicine 1.2 mg x 1 now then 0.6 mg po daily (ordered) JULEE, HIV and repeat inflammatory markers tomorrow Will follow while inpatient, he has previously been discharged from [facility] medical practice Thank you for allowing me to participate in the cardiovascular care of this patient. Please do not hesitate to contact me with questions or concerns.
[2018-12-24] MEDS: Ibuprofen TAB* 600 MG PO SCH ×2 (10:58→19:37)
[2018-12-24] MEDS ORDERED: Potassium Chloride* LIQUID 20 MEQ/15 ML UDC PO ONE (12:01)
--- NOTE | 2018-12-24 19:37 | PN ---
Subjective Date of Service: 12/24/18 Interval History: complaint of left sided chest pain radiating backward to left scapula. intermittent for a year, worse last 5 weeks. Exertional and pleuritic. Tmax 99.3 got tightness in throat and hives with the ceftriaxone in ED. stopped. s/p amoxicillin 11/30 for strep throat. resolved throat symptoms. hives on back one week ago. no effusion on ECHO troponins peaked 0.10. lost 20lbs in year intentionally. denies night sweats or foreign travel. ekg TWI III, from biphasic T to flat T in in v1 no ectasia (previously mild) of thoracic aorta Report that patient had been dismissed from [facility] cardiology for frequent no shows. Objective Active Medications: Acetaminophen (Tylenol Tab*) 650 mg PO Q4H PRN PRN Reason: FEVER/PAIN Last Admin: 12/24/18 05:53 Dose: 650 mg Al Hydrox/Mg Hydrox/Simethicone (Maalox Plus*) 30 ml PO Q6H PRN PRN Reason: INDIGESTION Last Admin: 12/24/18 08:26 Dose: 30 ml Colchicine (Colcrys*) 0.6 mg PO DAILY [facility] Diphenhydramine HCl (Benadryl Po*) 25 mg PO Q6H PRN PRN Reason: Allergy Symptoms Last Admin: 12/24/18 03:10 Dose: 25 mg Sodium Chloride (Ns 0.9% 1000 Ml) 1,000 mls @ 75 mls/hr IV PER RATE [facility] Last Admin: 12/24/18 19:30 Dose: 75 mls/hr Azithromycin (Zithromax 500 Mg/250 Ml) 500 mg in 250 mls @ 250 mls/hr IVPB Q24H [facility] Last Admin: 12/24/18 03:38 Dose: 250 mls/hr Ibuprofen (Motrin Tab*) 600 mg PO Q8H [facility] Last Admin: 12/24/18 10:58 Dose: 600 mg Ketorolac Tromethamine (Toradol Inj*) 15 mg IV PUSH Q6H PRN PRN Reason: PAIN Last Admin: 12/24/18 15:32 Dose: 15 mg Magnesium Hydroxide (Milk Of Magnesia Liq*) 30 ml PO Q4H PRN PRN Reason: CONSTIPATION Nicotine (Nicotine Patch 14 Mg/24 Hr*) 1 patch TRANSDERM 0900 [facility] Last Admin: 12/24/18 03:34 Dose: 1 patch Pharmacy Profile Note (Nicotine Patch Removal Note*) 1 note PATCH OFF 2100 [facility] Vital Signs - 8 hr 12/24/18 12/24/18 12/24/18 12:00 13:00 14:06 Temperature 97.4 F Pulse Rate 83 Respiratory 15 14 16 Rate Blood Pressure 106/63 112/67 128/73 (mmHg) O2 Sat by Pulse 100 Oximetry Oxygen Devices in Use Now: None Appearance: initially asleep, looks exhausted. Eyes: No Scleral Icterus Ears/Nose/Mouth/Throat: NL Teeth, Lips, Gums Neck: NL Appearance and Movements; NL JVP Respiratory: Symmetrical Chest Expansion and Respiratory Effort, Clear to Auscultation Cardiovascular: NL Sounds; No Murmurs; No JVD, RRR Abdominal: NL Sounds; No Tenderness; No Distention Lymphatic: No Cervical Adenopathy Extremities: No Edema Skin: No Rash or Ulcers Neurological: Alert and Oriented x 3 Nutrition: Taking PO's Result Diagrams: 12/24/18 08:45 12/24/18 08:45 Additional Lab and Data: Laboratory Results - last 24 hr 12/23/18 12/23/18 12/24/18 23:19 23:55 03:12 WBC RBC Hgb Hct MCV MCH MCHC RDW Plt Count MPV Neut % (Auto) Lymph % (Auto) [place] % (Auto) Eos % (Auto) Baso % (Auto) Absolute Neuts (auto) Absolute Lymphs (auto) Absolute Monos (auto) Absolute Eos (auto) Absolute Basos (auto) Absolute Nucleated RBC Nucleated RBC % Large Platelets ESR Sodium Potassium Chloride Carbon Dioxide Anion Gap BUN Creatinine Est GFR ( Amer) Est GFR (Non-Af Amer) BUN/Creatinine Ratio Glucose Calcium Troponin I 0.10 H* 0.06 H* C-Reactive Protein 9.93 H HIV 1&2 Antibody Influenza A (Rapid) Negative Influenza B (Rapid) Negative 12/24/18 12/24/18 12/24/18 05:50 05:50 08:45 WBC RBC Hgb Hct MCV MCH MCHC RDW Plt Count MPV Neut % (Auto) Lymph % (Auto) [place] % (Auto) Eos % (Auto) Baso % (Auto) Absolute Neuts (auto) Absolute Lymphs (auto) Absolute Monos (auto) Absolute Eos (auto) Absolute Basos (auto) Absolute Nucleated RBC Nucleated RBC % Large Platelets ESR 15 H Sodium 137 Potassium 3.6 Chloride 105 Carbon Dioxide 27 Anion Gap 5 BUN 9 Creatinine 0.93 Est GFR ( Amer) 116.2 Est GFR (Non-Af Amer) 96.1 BUN/Creatinine Ratio 9.7 Glucose 155 H Calcium 8.9 Troponin I 0.05 H* C-Reactive Protein HIV 1&2 Antibody Influenza A (Rapid) Influenza B (Rapid) 12/24/18 12/24/18 08:45 08:45 WBC 6.9 RBC 4.30 Hgb 11.9 L Hct 36 L MCV 83 MCH 28 MCHC 33 RDW 14 Plt Count 146 L MPV 9.7 Neut % (Auto) 71.9 Lymph % (Auto) 18.6 [place] % (Auto) 4.6 Eos % (Auto) 4.5 Baso % (Auto) 0.4 Absolute Neuts (auto) 5.0 Absolute Lymphs (auto) 1.3 Absolute Monos (auto) 0.3 Absolute Eos (auto) 0.3 Absolute Basos (auto) 0.0 Absolute Nucleated RBC 0.0 Nucleated RBC % 0.1 Large Platelets Present ESR Sodium Potassium Chloride Carbon Dioxide Anion Gap BUN Creatinine Est GFR ( Amer) Est GFR (Non-Af Amer) BUN/Creatinine Ratio Glucose Calcium Troponin I C-Reactive Protein HIV 1&2 Antibody Nonreactive Influenza A (Rapid) Influenza B (Rapid) Microbiology and Other Data: Microbiology 12/24/18 03:31 Nasal Nasal Screen MRSA (PCR) - Final Mrsa Not Detected Assess/Plan/Problems-Billing Assessment: 28 yo male H sharp chest pains, HTN, YODIT presenting with sharp, positional and pleuritic left sided chest pain radiating to his left medial scapula with concern for pericarditis (elevated troponin, max 0.10, ESR CRP modestly elevated ) - Patient Problems (1) Chest pain Current Visit: Yes Status: Acute Code(s): R07.9 - CHEST PAIN, UNSPECIFIED SNOMED Code(s): 11860068 Comment: pleuritic, positional and radiating to left medial scapula appreciate cardiology recs. suspected chronic recurrent pericarditis. (2) Pericarditis Current Visit: Yes Status: Acute Code(s): I31.9 - DISEASE OF PERICARDIUM, UNSPECIFIED SNOMED Code(s): 5425456 Comment: Start ibuprofen 600mg TID and colchicine with toradol for breakthrough. HIV negative f/u JULEE and Anti DS-DNA (3) HTN (hypertension) Current Visit: Yes Status: Acute Code(s): I10 - ESSENTIAL (PRIMARY) HYPERTENSION SNOMED Code(s): 42490504 Comment: well controlled. holding home lisinopril 20mg in setting of starting high dose NSAIDS restart home amlodipine 10mg (4) YODIT (obstructive sleep apnea) Current Visit: Yes Status: Acute Code(s): G47.33 - OBSTRUCTIVE SLEEP APNEA ( ADULT) (PEDIATRIC) SNOMED Code(s): 07728579 (5) Current smoker Current Visit: Yes Status: Acute Code(s): F17.200 - NICOTINE DEPENDENCE, UNSPECIFIED, UNCOMPLICATED SNOMED Code(s): 27751230 Comment: nicotine patch (6) Elevated troponin Current Visit: Yes Status: Acute Code(s): R74.8 - ABNORMAL LEVELS OF OTHER SERUM ENZYMES SNOMED Code(s): 541347527 Comment: likely from pericarditis. less likely myocardial ischemia. (7) Bronchiolitis Current Visit: Yes Status: Acute Code(s): J21.9 - ACUTE BRONCHIOLITIS, UNSPECIFIED SNOMED Code(s): 9858733 Comment: continue azithromycin for potential atypical pneumonia, potentially also viral (8) DVT prophylaxis Current Visit: Yes Status: Acute Code(s): Z29.9 - ENCOUNTER FOR PROPHYLACTIC MEASURES, UNSPECIFIED SNOMED Code(s): 257088292 Comment: SCDs Status and Disposition: medicine observation. Attending: Landen Gomez
[2018-12-24] MEDS ORDERED: Nicotine Patch Removal NOTE PATCH OFF SCH (21:00)
[2018-12-24] MEDS ORDERED: Nicotine GUM* 2 MG PO PRN (21:42)
[2018-12-25] MEDS: Azithromycin 500 mg/250 ml NS 500 MG/250 ML BAG IVPB SCH (01:50)
[2018-12-25] MEDS: Ibuprofen TAB* 600 MG PO SCH (01:55)
--- NOTE | 2018-12-25 08:31 | PN ---
Subjective Date of Service: 12/25/18 Interval History: f/u pericarditis current resting comfortably, no pain one prn toradol use yesterday inflammatory markers higher today tele nsr Medications Active Medications: Acetaminophen (Tylenol Tab*) 650 mg PO Q4H PRN PRN Reason: FEVER/PAIN Last Admin: 12/24/18 05:53 Dose: 650 mg Al Hydrox/Mg Hydrox/Simethicone (Maalox Plus*) 30 ml PO Q6H PRN PRN Reason: INDIGESTION Last Admin: 12/24/18 08:26 Dose: 30 ml Colchicine (Colcrys*) 0.6 mg PO DAILY [facility] Diphenhydramine HCl (Benadryl Po*) 25 mg PO Q6H PRN PRN Reason: Allergy Symptoms Last Admin: 12/24/18 03:10 Dose: 25 mg Azithromycin (Zithromax 500 Mg/250 Ml) 500 mg in 250 mls @ 250 mls/hr IVPB Q24H [facility] Last Admin: 12/25/18 01:50 Dose: 250 mls/hr Ibuprofen (Motrin Tab*) 600 mg PO Q8H [facility] Last Admin: 12/25/18 01:55 Dose: 600 mg Ketorolac Tromethamine (Toradol Inj*) 15 mg IV PUSH Q6H PRN PRN Reason: PAIN Last Admin: 12/24/18 15:32 Dose: 15 mg Magnesium Hydroxide (Milk Of Magnesia Liq*) 30 ml PO Q4H PRN PRN Reason: CONSTIPATION Nicotine (Nicotine Patch 14 Mg/24 Hr*) 1 patch TRANSDERM 0900 [facility] Last Admin: 12/24/18 03:34 Dose: 1 patch Nicotine Polacrilex (Nicotine Gum*) 2 mg PO Q2H PRN PRN Reason: CRAVING Last Admin: 12/24/18 22:00 Dose: 2 mg Pantoprazole Sodium (Protonix Tab*) 40 mg PO DAILY [facility] Pharmacy Profile Note (Nicotine Patch Removal Note*) 1 note PATCH OFF 2100 [facility] Last Admin: 12/24/18 21:26 Dose: 1 note Objective Vital Signs: Temp Pulse Resp BP Pulse Ox 98 F 70 16 139/78 99 12/24/18 19:35 12/25/18 05:00 12/24/18 20:00 12/24/18 19:35 12/24/18 19:35 Oxygen Devices in Use Now: None Appearance: nad, not toxic appearing Ears/Nose/Mouth/Throat: Clear Oropharnyx, Mucous Membranes Moist Neck: NL Appearance and Movements; NL JVP, Trachea Midline Respiratory: Symmetrical Chest Expansion and Respiratory Effort, Clear to Auscultation Cardiovascular: NL Sounds; No Murmurs; No JVD, RRR, No Edema Abdominal: NL Sounds; No Tenderness; No Distention Extremities: No Edema Skin: No Rash or Ulcers Neurological: Alert and Oriented x 3 Laboratory Results: 12/24/18 08:45 12/24/18 08:45 INR (Anticoag Therapy) 1.10 (0.82-1.09) H 12/23/18 20:34 APTT 35.1 seconds (26.0-36.3) 12/23/18 20:34 Total Bilirubin 0.30 mg/dL (0.2-1.0) 12/23/18 20:34 AST 13 U/L (13-39) 12/23/18 20:34 ALT 12 U/L (7-52) 12/23/18 20:34 Alkaline Phosphatase 63 U/L (34-104) 12/23/18 20:34 B-Natriuretic Peptide 10 pg/mL (<=100) 12/23/18 20:34 Total Protein 7.4 g/dL (6.4-8.9) 12/23/18 20:34 Albumin 4.3 g/dL (3.2-5.2) 12/23/18 20:34 Globulin 3.1 g/dL (2-4) 12/23/18 20:34 Albumin/Globulin Ratio 1.4 (1-3) 12/23/18 20:34 12/23/18 12/23/18 12/24/18 20:34 23:19 03:12 Troponin I 0.07 H* 0.10 H* 0.06 H* 12/24/18 05:50 Troponin I 0.05 H* today crp 42, esr 20 hiv negative Diagnostic Imaging: CT Angiography Chest With Contrast 12/23/2018 9:52 PM FINDINGS: Pulmonary arteries: Pulmonary arteries are well opacified to the subsegmental branches. Normal caliber main pulmonary artery. No filling defects throughout the pulmonary artery tree. Aorta: Normal caliber aorta with no evidence of dissection or rupture. Thyroid: No thyroid nodules. Lungs: Centrilobular groundglass nodules basilar segment right lower lobe and inferior right middle lobe. Dependent atelectasis posterior left lower lobe. No consolidation or masses. Mild parabronchial thickening right middle and lower lobes. No bronchiectasis. Pleural space: Normal. No pneumothorax. No pleural effusion. Heart: Normal. No cardiomegaly. No pericardial effusion. Lymph nodes: Normal. No enlarged lymph nodes. IMPRESSION: 1. No pulmonary emboli. 2. Right middle and lower lobe lung findings of respiratory bronchiolitis or atypical viral pneumonia. Transthoracic Echocardiogram Study Date: 12/24/2018 Conclusions Summary: 1. Left ventricle: The cavity size is normal. Wall thickness is mildly increased. Systolic function is normal. The estimated ejection fraction is 60-65%. Wall motion is normal; there are no regional wall motion abnormalities. 2. Right ventricle: The cavity size is normal. Systolic function is normal. Systolic pressure is within the normal range. 3. Left atrium: The atrium is normal in size. 4. Pericardium, extracardiac: There is no significant pericardial effusion. 5. No significant valvular abnormalities noted. EKG Data: ekg's this admission show nsr, early repolarization pattern grossly unchanged from prior. Assessment/Plan 1. Pericarditis 2. Pneumonia - ? infectious 3. HTN Hold lisinopril while on nsaids Can restart amlodipine if needed Continue colchicine 0.6 mg x 3 months Ibuprofen 600 mg po tid x 5 days, then bid x 5 days, then qd x 5 days. PPI prophylaxis ordered today protonix 40 mg Have significant concern for lupus, hold steroids for now, I d/w lab JULEE is send out can take a week to return He has previously been discharged from [facility] medical practice and alternative cardiology follow up will need arranged Thank you for allowing me to participate in the cardiovascular care of this patient. Please do not hesitate to contact me with questions or concerns.
[2018-12-25] MEDS ORDERED: Colchicine* 0.6 MG TAB PO SCH (09:00)
[2018-12-25] MEDS ORDERED: Pantoprazole TAB * 40 MG TAB PO SCH (09:00)
[2018-12-25] MEDS: Nicotine PATCH 14 MG/24 HR* PATCH TRANSDERM SCH (09:16)
[2018-12-25 10:36] VITALS: BP 105/70
--- NOTE | 2018-12-25 22:52 | DS ---
CC: [facility].* DISCHARGE SUMMARY: DATE OF ADMISSION: 12/24/18 DATE OF DISCHARGE: 12/25/18 ADMITTING PROVIDER: Frannie Cruz MD ATTENDING PHYSICIAN ON THE DAY OF DISCHARGE: Landen Gomez MD PRIMARY CARE PROVIDER: None. The patient was recommended to establish with the [facility]. CONSULTING STONE CRUSHER OPERATOR: Champ Kirby DO FORMER OUTPATIENT STONE CRUSHER OPERATOR: Dr. Whittaker. The patient has been discharged from [facility] for reported of repeated no shows. CHIEF COMPLAINT: [id number] chest pain. PRINCIPAL DIAGNOSIS: Suspected pericarditis (recurrent). HISTORY OF PRESENT ILLNESS: Justo Kim is a 28-year-old male with past medical history of hypertension; obstructive sleep apnea, not on CPAP, who had complained of chronic left-sided sharp chest pains with breathing that were intermittent prior to admission that have been going on for 5 days. Please see H and P of Dr. Frannie Cruz for full details. Of note, he had been treated for a strep throat infection 3 weeks prior with amoxicillin with resolution of those symptoms. The pain radiated into the medial aspect of his left scapula and troponin was initially elevated to 0.07 with peak at 0.10. Had CRP initially of 9.9, ESR of 15. EKG demonstrated early repolarization pattern grossly unchanged, otherwise normal sinus rhythm. He was seen in consultation with Dr. Kirby of Cardiology and echocardiogram was obtained, which demonstrated ejection fraction of 60% to 65%. No regional wall motion abnormalities. No significant pericardial effusion or significant valvular abnormalities. Dr. Kirby suspected recurrent pericarditis, recommended initiation of ibuprofen 600 mg p.o. t.i.d. for 5 days followed by b.i.d. for 5 days and daily for 5 days and stop. Colchicine 1.2 mg x1, then 0.6 mg daily was initiated, plan for 3 months. Inflammatory markers increased on hospital day #2 with ESR of 20 and CRP of 42.3. He was afebrile. His pain resolved with ibuprofen. He was ambulating the halls without difficulty. HIV 1 and 2 test was ordered, was negative. JULEE and double-stranded DNA antibodies were drawn, but pending at the time of discharge to further evaluate systemic causes of pericarditis such as SLE. His flu was negative. BNP was 10. He was without leukocytosis. He was initially treated with ceftriaxone, azithromycin in the emergency room, the ceftriaxone caused some discomfort in his throat and hives, and this was stopped. He had some GI upset with azithromycin. This will not be continued on discharge, he got 2 doses. He had, of note, elevated D -dimer of [address] chest angiogram was performed, which showed no pulmonary emboli. There was a right middle lobe and lower lobe lung findings of respiratory bronchiolitis or atypical viral pneumonia. He did not require oxygen. He was recommended to follow up with [facility] to establish care. DISCHARGE MEDICATIONS: Include: 1. Amlodipine 10 mg daily. 2. Colchicine 0.6 mg daily for 3 months. 3. Ibuprofen 600 mg p.o. t.i.d. for 4 more days, then 500 mg p.o. b.i.d. for 5 days, and 500 mg daily for 5 days, then stop. 4. Nicotine gum 2 mg p.o. q.2 hours p.r.n. for craving. 5. Nicotine patch 14 mg per 24 hours transdermally daily. 6. Protonix 40 mg p.o. daily (old but refilled). 7. Amlodipine (old but refilled). Of note, his lisinopril was stopped in the setting of high dose NSAID use and normotensive blood pressures. His creatinine was 0.91 with a GFR of 98. FOLLOWUP: Please follow up with [facility], Dr. Gomez, on either or 01/06/19 to go over labs and review symptoms. Of note, he has been discharged from Dr. Whittaker and the rest of [facility] given repeated no shows. DISPOSITION: Home. CONDITION: Improved. DIET: Heart healthy, unchanged. TIME SPENT ON DISCHARGE: 35 minutes. [id number]/[facility] #: [id number] HARMAN
== END 2018-12-25 12:35 | disposition home or self-care (01) ==
LOC: ED 20:00 → ICU 12-24 01:17 → MEDTELE 12-24 14:00
PROVIDERS: ADMIT Internal Medicine; ATTEND Internal Medicine
DX: R07.9 Chest pain, unspecified (principal); I10 Essential (primary) hypertension; G47.33 Obstructive sleep apnea (adult) (pediatric); F17.210 Nicotine dependence, cigarettes, uncomplicated; R74.8 Abnormal levels of other serum enzymes; J21.9 Acute bronchiolitis, unspecified
CPT/HCPCS: 36415; 71275; 80048; 80053; 82550; 83880; 84484; 85025; 85379; 85610; 85652; 85730; 86038; 86140; 86225; 86703; 87040; 87641; 93005; 96365; 96375; 99284; A9270-GY; G0378; J0456; J0696; J1885; J2270; J2765; Q9967

== ENCOUNTER 2019-02-17 15:27 | Emergency (ER) | payer OTHER ==
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
[2019-02-17] MEDS ORDERED: Ketorolac *IM* INJ* 60 MG/2 ML VIAL IM ONE (17:34)
[2019-02-17] MEDS ORDERED: Dexamethasone IV* 4 MG/ML 1 ML (4 MG) IM ONE (17:34)
[2019-02-17] MEDS ORDERED: HYDROcodone/ACETAMIN 5-325 MG* 1 TAB PO ONE (17:37)
[2019-02-17 18:45] VITALS: BP 156/98
== END 2019-02-17 18:45 | disposition home or self-care (01) ==
LOC: ED 15:27
DX: M54.2 Cervicalgia (principal); V43.52XA Car driver injured in collision with other type car in traffic accident, initial encounter; Y92.414 Local residential or business street as the place of occurrence of the external cause; I10 Essential (primary) hypertension; F17.210 Nicotine dependence, cigarettes, uncomplicated; Z88.1 Allergy status to other antibiotic agents
CPT/HCPCS: 70450; 71046; 72125; 96372; 99282; J1100; J1885

== ENCOUNTER 2019-02-21 17:29 | Emergency (ER) | payer OTHER ==
[2019-02-21 17:42] VITALS: BP 146/90
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
== END 2019-02-21 18:05 | disposition home or self-care (01) ==
LOC: UCEAST 17:29
DX: S16.1XXA Strain of muscle, fascia and tendon at neck level, initial encounter (principal); V49.9XXA Car occupant (driver) (passenger) injured in unspecified traffic accident, initial encounter; Y92.410 Unspecified street and highway as the place of occurrence of the external cause; I10 Essential (primary) hypertension; I31.9 Disease of pericardium, unspecified; F17.210 Nicotine dependence, cigarettes, uncomplicated
CPT/HCPCS: 99212; G0463

== ENCOUNTER 2019-03-25 17:51 | Emergency (ER) | payer OTHER ==
[2019-03-25 19:33] LABS: ABS Basophils 0.1 10^3/ul (0-0.2); ABS Eosinophils 0.1 10^3/ul (0-0.6); ABS Lymphocytes 1.5 10^3/ul (1.0-4.8); ABS Monocytes 0.3 10^3/ul (0-0.8); ABS Neutrophils 2.1 10^3/ul (1.5-7.7); Eosinophil % 3.5 %; Hematocrit 40 % (42-52); Hemoglobin 13.3 g/dL (14.0-18.0); Mean Corpuscular HGB Conc 33 g/dL (31-36); Mean Corpuscular Hemoglobin 28 pg (27-31); Mean Corpuscular Volume 84 fL (80-94); Platelet Count 197 10^3/uL (150-450); Red Blood Count 4.78 10^6 /uL (4.18-5.48); Red Cell Distribution Width 14 % (10-15); White Blood Count 4.1 10^3/uL (3.5-10.8)
[2019-03-25 19:39] LABS: INR 1.09 (0.82-1.09)
--- NOTE | 2019-03-25 19:46 | ED ---
HPI Chest Pain - HPI Summary HPI Summary: Pt is a 29 y/o M presenting to the ED with a chief complaint of chest pain in the mid-sternal region onset this morning, when it woke him up. He notes that when he woke up, he experienced numbness in his R hand and L foot. He states that the pain was worse this morning, is similar to when he was dxed with pericarditis about 2 months ago, radiates to his L shoulder, and is worse with deep breaths and exertion. He reports HTN and weakness associated with the CP. He denies nausea, diaphoresis, lightheadedness, or SOB. - History of Current Complaint Chief Complaint: EDChestPainROMI Time Seen by Provider: 03/25/19 19:28 Hx Obtained From: Patient Onset/Duration: Started Hours Ago, Still Present Timing: Constant, Lasting Hours Initial Severity: Severe Current Severity: Moderate Pain Intensity: 6 Pain Scale Used: 0-10 Numeric Chest Pain Location: Mid Sternal Chest Pain Radiates: Yes Chest Pain Radiates To:: Shoulder - L Aggravating Factor(s): Exertion, Deep Breaths Alleviating Factor(s): Nothing Associated Signs and Symptoms: Positive: Chest Pain, Numbness, Weakness, Other: - HTN. Negative: Shortness of Breath, Lightheadedness, Diaphoresis, Nausea - Additional Pertinent History Primary Care Physician: [id number] - Allergy/Home Medications Allergies/Adverse Reactions: Allergies Allergy/AdvReac Type Severity Reaction Status Date / Time bee venom protein (honey bee) Allergy Swelling Verified 03/25/19 18:06 ceftriaxone Allergy Hives Verified 03/25/19 18:06 shellfish derived Allergy Anaphylatic Verified 03/25/19 18:06 Shock PMH/Surg Hx/FS Hx/Imm Hx Previously Healthy: Yes Endocrine/Hematology History: Denies: Hx Diabetes, Hx Thyroid Disease Cardiovascular History: Reports: Hx Angina, Hx Hypertension Denies: Hx Congestive Heart Failure, Hx Deep Vein Thrombosis, Hx Myocardial Infarction, Hx Pacemaker/ICD, Hx Peripheral Vascular Disease Respiratory History: Denies: Hx Asthma, Hx Chronic Obstructive Pulmonary Disease (COPD), Hx Lung Cancer, Hx Pneumonia, Hx Pulmonary Embolism GI History: Denies: Hx Gall Bladder Disease, Hx Gastrointestinal Bleed, Hx Ulcer, Hx Urosepsis, Other GI Disorders History: Denies: Hx Kidney Stones, Hx Renal Disease, Other Problems/Disorders Sensory History: Denies: Hx Contacts or Glasses, Hx Hearing Aid Opthamlomology History: Denies: Hx Contacts or Glasses Neurological History: Denies: Hx Dementia, Hx Migraine, Hx Seizures, Hx Transient Ischemic Attacks (TIA) Psychiatric History: Reports: Hx Anxiety Denies: Hx Depression, Hx Schizophrenia, Hx Bipolar Disorder - Surgical History Surgery Procedure, Year, and Place: None - Immunization History Date of Tetanus Vaccine: unk Date of Influenza Vaccine: none Immunizations Up to Date: Yes Infectious Disease History: No Infectious Disease History: Denies: Hx Clostridium Difficile, Hx Hepatitis, Hx Human Immunodeficiency Virus (HIV), Hx of Known/Suspected MRSA, Hx Shingles, Hx Tuberculosis, Hx Known/ Suspected VRE, Hx Known/Suspected VRSA, History Other Infectious Disease, Traveled Outside the [place] in Last 30 Days - Family History Known Family History: Positive: Hypertension, Diabetes, Other - father of brain cancer - Social History Alcohol Use: Rare Hx Substance Use: Yes Substance Use Type: Reports: None Hx Tobacco Use: Yes Smoking Status (MU): Light Every Day Tobacco Smoker Type: Cigarettes Amount Used/How Often: 2 cigarette/ day Length of Time of Smoking/Using Tobacco: 2014 Have You Smoked in the Last Year: Yes Review of Systems Negative: Skin Diaphoresis Positive: Chest Pain Negative: Shortness Of Breath Negative: Nausea Neurological: Negative - lightheadedness Positive: Numbness All Other Systems Reviewed And Are Negative: Yes Physical Exam - Summary Physical Exam Summary: Appearance: The patient is well-nourished in no acute distress and in no acute pain. Skin: The skin is warm and dry and skin color reflects adequate perfusion. HEENT: The head is normocephalic and atraumatic. The pupils are equal and reactive. The conjunctivae are clear and without drainage. Nares are patent and without drainage. Mouth reveals moist mucous membranes and the throat is without erythema and exudate. The external ears are intact. The ear canals are patent and without drainage. The tympanic membranes are intact. Neck: The neck is supple with full range of motion and non-tender. There are no carotid bruits. There is no neck vein distension. Respiratory: Chest is non-tender. Lungs are clear to auscultation and breath sounds are symmetrical and equal. Cardiovascular: Heart is regular rate and rhythm. There is no murmur or rub auscultated. There is no peripheral edema and pulses are symmetrical and equal. Abdomen: The abdomen is soft and non-tender. There are normal bowel sounds heard in all four quadrants and there is no organomegaly palpated. Musculoskeletal: There is no back tenderness noted. Extremities are non-tender with full range of motion. There is good capillary refill. There is no peripheral edema or calf tenderness elicited. Neurological: Patient is alert and oriented to person, place and time. The patient has symmetrical motor strength in all four extremities. Cranial nerves are grossly intact. Deep tendon reflexes are symmetrical and equal in all four extremities. Psychiatric: The patient has an appropriate affect and does not exhibit any anxiety or depression. Triage Information Reviewed: Yes Vital Signs On Initial Exam: Initial Vitals Temp Pulse Resp BP Pulse Ox 98.9 F 78 16 143/104 100 03/25/19 17:59 03/25/19 17:59 03/25/19 17:59 03/25/19 17:59 03/25/19 17:59 Vital Signs Reviewed: Yes Diagnostics - Vital Signs Vital Signs Temp Pulse Resp BP Pulse Ox 03/25/19 19:24 63 12 150/107 100 03/25/19 19:23 70 13 99 03/25/19 17:59 98.9 F 78 16 143/104 100 - Laboratory Lab Results: Lab Results 03/25/19 03/25/19 Range/Units 18:56 18:56 WBC 4.1 (3.5-10.8) 10^3/uL RBC 4.78 (4.18-5.48) 10^6 /uL Hgb 13.3 L (14.0-18.0) g/dL Hct 40 L (42-52) % MCV 84 (80-94) fL MCH 28 (27-31) pg MCHC 33 (31-36) g/dL RDW 14 (10-15) % Plt Count 197 (150-450) 10^3/uL MPV 10.0 (7.4-10.4) fL Neut % (Auto) 51.3 % Lymph % (Auto) 37.0 % Warren % (Auto) 6.9 % Eos % (Auto) 3.5 % Baso % (Auto) 1.3 % Absolute Neuts (auto) 2.1 (1.5-7.7) 10^3/ul Absolute Lymphs (auto) 1.5 (1.0-4.8) 10^3/ul Absolute Monos (auto) 0.3 (0-0.8) 10^3/ul Absolute Eos (auto) 0.1 (0-0.6) 10^3/ul Absolute Basos (auto) 0.1 (0-0.2) 10^3/ul Absolute Nucleated RBC 0.0 10^3/ul Nucleated RBC % 0.0 INR (Anticoag Therapy) 1.09 (0.82-1.09) Result Diagrams: 03/25/19 18:56 03/25/19 18:56 Lab Statement: Any lab studies that have been ordered have been reviewed, and results considered in the medical decision making process. - EKG 1924 Cardiac Rate: Bradycardia - 53bpm EKG Rhythm: Sinus Bradycardia ST Segment: Normal Ectopy: None Summary of EKG Findings: EKG at 1924 shows sinus bradycardia at 53bpm with normal ST, no ectopy, and no STEMI. Chest Pain Course/Dx - Course Course Of Treatment: Mr. Kim presented with a concern that his pericarditis symptoms were returning. His EKG and labs were unremarkable aside from a mildly elevated CRP. He was nontoxic in appearance with stable vitals. I reviewed this with Dr. Paula because the patient has been on colchicine for 2 months and she recommended increasing the colchicine and adding a nonsteroidal. - Diagnoses Provider Diagnoses: Pericarditis Discharge - Sign-Out/Discharge Documenting (check all that apply): Patient Departure Patient Received Moderate/Deep Sedation with Procedure: No - Discharge Plan Condition: Stable Disposition: HOME Prescriptions: Colchicine* [Colcrys*] 0.6 mg PO DAILY #30 tab Ibuprofen TAB* [Motrin TAB* 600 MG] 600 mg PO Q8H #42 tab Patient Education Materials: Acute Pericarditis (ED) Referrals: Champ Kirby DO [Medical Doctor] - Landen Gomez MD [Primary Care Provider] - Additional Instructions: Please increase your Cholchicine to 2 tablets per day. Take your prescribed medications as instructed. Follow up with Dr. Kirby next week. Return to the emergency department with any new or worsening symptoms. - Billing Disposition and Condition Condition: STABLE Disposition: Home - Attestation Statements Document Initiated by Scribe: Yes Documenting Scribe: Tiki Ames Provider For Whom Scribe is Documenting (Include Credential): Yogi Moser MD. Scribe Attestation: I, Tiki Ames, scribed for Yogi Moser MD. on 03/25/19 at 2143. Scribe Documentation Reviewed: Yes Provider Attestation: The documentation as recorded by the scribe, Tiki Ames accurately reflects the service I personally performed and the decisions made by me, Yogi Moser MD. Status of Scribe Document: Viewed
[2019-03-25 19:51] LABS: Albumin 4.5 g/dL (3.2-5.2); Albumin/Globulin Ratio 1.7 (1-3); EGFR African American 116.9 (>60); EGFR Non-African American 96.6 (>60); Globulin 2.7 g/dL (2-4); Potassium 3.8 mmol/L (3.5-5.0); Total Bilirubin 0.4 mg/dL (0.2-1.0); Total Protein 7.2 g/dL (6.4-8.9)
[2019-03-25 20:32] LABS: C Reactive Protein 11.54 mg/L (<8.01)
[2019-03-25 21:38] VITALS: BP 138/85
[2019-03-25 21:55] LABS: Erythrocyte Sed Rate 5 mm/Hr (0-14)
== END 2019-03-25 21:36 | disposition home or self-care (01) ==
LOC: ED 17:51
DX: I31.9 Disease of pericardium, unspecified (principal); R20.0 Anesthesia of skin; R53.1 Weakness; I10 Essential (primary) hypertension; R00.1 Bradycardia, unspecified; Z88.1 Allergy status to other antibiotic agents; Z91.030 Bee allergy status; Z91.013 Allergy to seafood; F17.210 Nicotine dependence, cigarettes, uncomplicated
CPT/HCPCS: 36415; 80053; 84484; 85025; 85610; 85652; 86140; 93005; 99282

== ENCOUNTER 2019-05-24 16:03 | Emergency (ER) | payer OTHER ==
[2019-05-24] MEDS ORDERED: diPHENhydraMINE IV* 50 MG/ML 1 ml VIAL (BENADRYL) SLOW PUSH ONE (16:31)
[2019-05-24] MEDS ORDERED: Famotidine IV* 10 MG/ML 2 ML (20 mg) IV SLOW PU ONE (16:31)
[2019-05-24] MEDS ORDERED: methylPREDNISolone 125 MG* 2 ML VIAL IV ONE (16:31)
[2019-05-24 17:15] VITALS: BP 153/106
--- NOTE | 2019-05-24 17:44 | UC ---
Allergic Reaction HPI - HPI Summary HPI Summary: 29-year-old male presents with sudden onset of left eye swelling and full body itching after eating a chocolate bar with some type of nut. Does not report any swelling of the lips, tongue, throat although states he does feel like he has to repeatedly clear his throat. States he took some kind of over-the- counter allergy medication prior to arrival but is uncertain of what it was that he took. Denies fever, chills, eye pain, eye redness, eye discharge, eye injury, URI symptoms, chest pain, or shortness of breath. - History of Current Complaint Chief Complaint: UCAllergicReaction Stated Complaint: ALLERGIC REACTION Hx Obtained From: Patient Pain Intensity: 0 - Allergies/Home Medications Allergies/Adverse Reactions: Allergies Allergy/AdvReac Type Severity Reaction Status Date / Time bee venom protein (honey bee) Allergy Swelling Verified 03/25/19 18:06 ceftriaxone Allergy Hives Verified 03/25/19 18:06 shellfish derived Allergy Anaphylatic Verified 03/25/19 18:06 Shock Tree Nuts Allergy Swelling Verified 05/24/19 16:19 Home Medications: Home Medications diphenhydrAMINE HCl [Benadryl Allergy 25 MG CAP] 25 mg PO Q6HR 05/24/19 [ History Confirmed 05/24/19] PMH/Surg Hx/FS Hx/Imm Hx Cardiovascular History: Hypertension Respiratory History: Other - YODIT Other History Of: Negative For: HIV, Hepatitis B, Hepatitis C - Surgical History Surgical History: None Surgery Procedure, Year, and Place: None - Family History Known Family History: Positive: Hypertension, Diabetes, Other - father of brain cancer - Social History Occupation: Employed Full-time Lives: With Family Alcohol Use: Rare Substance Use Type: None Smoking Status (MU): Light Every Day Tobacco Smoker Type: Cigarettes Amount Used/How Often: 2 cigarette/ day Length of Time of Smoking/Using Tobacco: 2015 Have You Smoked in the Last Year: Yes Household Exposure Type: Cigarettes Review of Systems All Other Systems Reviewed And Are Negative: Yes Constitutional: Positive: Negative Skin: Negative: Rash Eyes: Positive: Other - See HPI ENT: Negative: Other - Swelling of lips, tongue, throat Respiratory: Negative: Shortness Of Breath Cardiovascular: Positive: Negative Gastrointestinal: Positive: Negative Genitourinary: Positive: Negative Musculoskeletal: Positive: Negative Neurological: Positive: Negative Is Patient Immunocompromised?: No Physical Exam - Summary Physical Exam Summary: GENERAL APPEARANCE: Well developed, well nourished, alert and cooperative, and appears to be in no acute distress. EYES: Periorbital edema of the left eye. Conjunctiva clear. No drainage. PERRL, EOM intact. Vision is grossly intact. MOUTH/THROAT: Pharynx normal. No tonsilar inflammation, swelling, exudate, or lesions. Uvula midline. No swelling of the lips, tongue, or throat. Airway patent. NECK: Neck supple, non-tender without lymphadenopathy. CARDIAC: Normal S1 and S2. No S3, S4 or murmurs. Rhythm is regular. There is no peripheral edema, cyanosis or pallor. Extremities are warm and well perfused. Capillary refill is less than 2 seconds. Peripheral pulses intact. LUNGS: Clear to auscultation without rales, rhonchi, wheezing or diminished breath sounds. ABDOMEN: Positive bowel sounds. Soft, nondistended, nontender. No guarding or rebound. No masses or hepatosplenomegally. MUSKULOSKELETAL: ROM intact to all extremities. No joint erythema or tenderness. Normal muscular development. Normal gait. SKIN: Skin normal color, texture and turgor. No rash or urticaria noted. Triage Information Reviewed: Yes Vital Signs: Initial Vital Signs Temp 98.5 F 05/24/19 16:14 Pulse 74 05/24/19 16:14 Resp 16 05/24/19 16:14 BP 142/97 05/24/19 16:14 Pulse Ox 98 05/24/19 16:14 Vital Signs Reviewed: Yes Allergic Reaction Course/Dx - Course Course Of Treatment: 29-year-old male presents with sudden onset of left eye swelling and full body itching after eating a chocolate bar with some type of nut. Does not report any swelling of the lips, tongue, throat although states he does feel like he has to repeatedly clear his throat. States he took some kind of over-the- counter allergy medication prior to arrival but is uncertain of what it was that he took. Denies fever, chills, eye pain, eye redness, eye discharge, eye injury, URI symptoms, chest pain, or shortness of breath. Afebrile. Hypertensive otherwise vital signs stable. Patient had periorbital edema of the left eye without conjunctival erythema or discharge, vision was grossly intact, no swelling of the lips, tongue, throat, airway was patent, bilateral breath sounds were clear, no rash or urticaria were noted, and otherwise unremarkable exam. An IV was established and the patient was given methylprednisolone 125 mg IV, diphenhydramine 50 mg IV, and famotidine 40 mg IV. Patient was observed and he reported that the itching subsided. The periorbital edema improved and patient was able to fully open his eye without difficulty. He had no swelling of the lips, tongue, throat or difficulty breathing during his time in the clinic. He was discharged home with a likely allergic reaction. He was encouraged to use diphenhydramine or an non-drowsy antihistamine for itching and take over the counter famotadine twice daily. He was prescribed an EpiPen and instructed on when to use should he ever develop swelling of the lips, tongue, or throat or have any difficulty breathing. He is to follow-up with his primary care provider in 2-3 days. Anticipatory guidance and warning symptoms reviewed with the patient. Verbalizes understanding and agrees with plan of care. - Differential Dx/Diagnosis Differential Diagnosis/HQI/PQRI: Anaphylaxis, Angioedema, Local Allergic Reaction, Urticaria Provider Diagnosis: Allergic reaction, Periorbital edema of left eye Discharge ED - Sign-Out/Discharge Documenting (check all that apply): Patient Departure All imaging exams completed and their final reports reviewed: No Studies - Discharge Plan Condition: Stable Disposition: HOME Prescriptions: EPINEPHrine [Epipen 2-Gelacio] 0.3 mg IM ONCE PRN #1 inj PRN Reason: Allergy Symptoms Patient Education Materials: Food Allergy (ED) Referrals: Landen Gomez MD [Primary Care Provider] - 2 Days Additional Instructions: Your symptoms appear to be from an allergic reaction, likely from the nuts you ate. You were given diphenhydramine (Benadryl) 50 mg, methylprednisolone 125 mg, and famotadine (Pepcid) 40 mg in the clinic for your reaction. Continue to take diphenhydramine 25-50 mg every 6 hours or and [id number] non-drowsy antihistamine such as Zyrtec, Claritin, or Zoya, twice daily as needed for itching. I would recommend that you continue taking [id number] famotidine (Pepcid) 20 mg twice a day for the next 5 days. I have sent in a prescription for an EpiPen. I recommend filling this prescription and carrying this with you at all times. You should use this immediately if you have another allergic reaction and developed swelling of the lips, tongue, throat, or difficulty breathing. If he use the EpiPen you should seek immediate medical attention in the emergency room. Follow-up with your primary care provider in 2-3 days for recheck of symptoms. Seek immediate medical attention in the emergency room if you develop swelling of the lips, tongue, throat, difficulty breathing, or any worsening of symptoms. - Billing Disposition and Condition Condition: STABLE Disposition: Home - Attestation Statements Provider Attestation: Per institutional requirements, I have reviewed the chart, however, I was not consulted specifically or made aware of this patient by the midlevel provider. I did not personally evaluate, interact with , or disposition this patient.
== END 2019-05-24 17:54 | disposition home or self-care (01) ==
LOC: UCEAST 16:03
DX: T78.1XXA Other adverse food reactions, not elsewhere classified, initial encounter (principal); H57.89 Other specified disorders of eye and adnexa; I10 Essential (primary) hypertension; F17.210 Nicotine dependence, cigarettes, uncomplicated; Z91.030 Bee allergy status; Z88.1 Allergy status to other antibiotic agents; Z91.013 Allergy to seafood; Z91.018 Allergy to other foods; X58.XXXA Exposure to other specified factors, initial encounter; Y92.9 Unspecified place or not applicable
CPT/HCPCS: 96374; 96375; 99212; G0463; J1200; J2930

== ENCOUNTER 2019-08-11 00:10 | Emergency (ER) | payer OTHER ==
--- NOTE | 2019-08-11 00:46 | ED ---
HPI Chest Pain - HPI Summary HPI Summary: Pt is a 29 y/o M presenting to the ED with a chief complaint of chest pain initially onset earlier today. He states he has hx of pericarditis and has been taking Ibuprofen as well as prescribed medication from his last episode of pericarditis. Tonight the pain worsened to the point where he thought he should come in. Pain worsened on exertion. Pain somewhat alleviated with massage. He states he has hx of anxiety/panic attacks, and believes he may have had one today accompanied by shortness of breath and diaphoresis. He denies nausea. Compliant with medications. - History of Current Complaint Chief Complaint: EDChestPainROMI Time Seen by Provider: 08/11/19 00:22 Hx Obtained From: Patient Onset/Duration: Started Hours Ago, Still Present Timing: Intermittent, Lasting Hours Initial Severity: Moderate Current Severity: Severe Pain Intensity: 8 Pain Scale Used: 0-10 Numeric Chest Pain Location: Mid Sternal, Left Anterior Chest Pain Radiates: No Aggravating Factor(s): Exertion Alleviating Factor(s): Other: - massaging area of pain Associated Signs and Symptoms: Positive: Chest Pain, Anxiety, Shortness of Breath, Diaphoresis. Negative: Nausea - Additional Pertinent History Primary Care Physician: [id number] - Allergy/Home Medications Allergies/Adverse Reactions: Allergies Allergy/AdvReac Type Severity Reaction Status Date / Time bee venom protein (honey bee) Allergy Swelling Verified 08/11/19 00:20 ceftriaxone Allergy Hives Verified 08/11/19 00:20 shellfish derived Allergy Anaphylatic Verified 08/11/19 00:20 Shock Tree Nuts Allergy Swelling Verified 08/11/19 00:20 PMH/Surg Hx/FS Hx/Imm Hx Previously Healthy: Yes Endocrine/Hematology History: Denies: Hx Diabetes, Hx Thyroid Disease Cardiovascular History: Reports: Hx Angina, Hx Hypertension, Other Cardiovascular Problems/Disorders - pericarditis - recurrent Denies: Hx Congestive Heart Failure, Hx Deep Vein Thrombosis, Hx Myocardial Infarction, Hx Pacemaker/ICD, Hx Peripheral Vascular Disease Respiratory History: Denies: Hx Asthma, Hx Chronic Obstructive Pulmonary Disease (COPD), Hx Lung Cancer, Hx Pneumonia, Hx Pulmonary Embolism GI History: Denies: Hx Gall Bladder Disease, Hx Gastrointestinal Bleed, Hx Ulcer, Hx Urosepsis, Other GI Disorders History: Denies: Hx Kidney Stones, Hx Renal Disease, Other Problems/Disorders Sensory History: Denies: Hx Contacts or Glasses, Hx Hearing Aid Opthamlomology History: Denies: Hx Contacts or Glasses Neurological History: Denies: Hx Dementia, Hx Migraine, Hx Seizures, Hx Transient Ischemic Attacks (TIA) Psychiatric History: Reports: Hx Anxiety Denies: Hx Depression, Hx Schizophrenia, Hx Bipolar Disorder - Surgical History Surgery Procedure, Year, and Place: None - Immunization History Date of Tetanus Vaccine: unk Date of Influenza Vaccine: none Infectious Disease History: No Infectious Disease History: Denies: Hx Clostridium Difficile, Hx Hepatitis, Hx Human Immunodeficiency Virus (HIV), Hx of Known/Suspected MRSA, Hx Shingles, Hx Tuberculosis, Hx Known/ Suspected VRE, Hx Known/Suspected VRSA, History Other Infectious Disease, Traveled Outside the [place] in Last 30 Days - Family History Known Family History: Positive: Hypertension, Diabetes, Other - father of brain cancer - Social History Alcohol Use: Rare Hx Substance Use: Yes Substance Use Type: Reports: None Hx Tobacco Use: Yes Smoking Status (MU): Light Every Day Tobacco Smoker Type: Cigarettes Amount Used/How Often: 2 cigarette/ day Length of Time of Smoking/Using Tobacco: 2015 Have You Smoked in the Last Year: Yes Review of Systems - ROS Summary Review of Systems Summary: Home Medications Medication Instructions Recorded Confirmed Type amLODIPine TAB* [Norvasc 5 mg TAB*] 10 mg PO DAILY #30 tab 12/25/18 08/11/19 Rx Acetaminophen TAB* [Tylenol TAB*] 650 mg PO Q6HR PRN 02/21/19 08/11/19 History Metoprolol Succinate [Kapspargo 100 mg PO DAILY 02/21/19 08/11/19 History Sprinkle] Ibuprofen TAB* [Motrin TAB* 600 MG] 600 mg PO Q8H #42 tab 03/25/19 08/11/19 Rx EPINEPHrine [Epipen 2-Gelacio] 0.3 mg IM ONCE PRN #1 inj 05/24/19 08/11/19 Rx diphenhydrAMINE HCl [Benadryl 25 mg PO Q6HR 05/24/19 08/11/19 History Allergy 25 MG CAP] Positive: Skin Diaphoresis Positive: Chest Pain Positive: Shortness Of Breath Negative: Nausea Positive: Anxious All Other Systems Reviewed And Are Negative: Yes Physical Exam - Summary Physical Exam Summary: General: Well-developed, Well-nourished male. Mildly anxious appearing. HEENT: Normocephalic, Atraumatic. Eyes: Conjuctiva normal, PERRL. Oropharynx: Clear, mucous membranes moist, (-) exudates. Neck: Soft, FROM, (-) lymphadenopathy, (-) thyromegaly, (-) JVD. Cardiovascular: Normal sinus rhythm, (-) murmur. Lungs: Clear to auscultation bilaterally (-) wheezes, (-) rales, (-) rhonchi. Abdomen: Soft, non-tender, non-distended, (-) organomegaly, normal bowel sounds. Back: (-) CVA tenderness Extremities: No edema. Skin: Warm, dry, (-) rash. Neuro: Alert and oriented x3, no focal deficits. Psychiatric: Mood normal, affect mildly anxious. Triage Information Reviewed: Yes Vital Signs On Initial Exam: Initial Vitals Temp Pulse Resp BP Pulse Ox 98.4 F 74 18 153/93 100 08/11/19 00:16 08/11/19 00:16 08/11/19 00:16 08/11/19 00:16 08/11/19 00:16 Vital Signs Reviewed: Yes Procedures - Sedation Patient Received Moderate/Deep Sedation with Procedure: No Diagnostics - Vital Signs Vital Signs Temp Pulse Resp BP Pulse Ox 08/11/19 00:16 98.4 F 74 18 153/93 100 - Laboratory Result Diagrams: 08/11/19 00:48 08/11/19 00:48 Lab Statement: Any lab studies that have been ordered have been reviewed, and results considered in the medical decision making process. - Radiology CXR Radiology Interpretation Completed By: ED Physician Summary of Radiographic Findings: No infiltrate. No pleural effusion. Pending official radiology report. - EKG 0013 Cardiac Rate: NL - 72bpm EKG Rhythm: Sinus Rhythm ST Segment: Normal Ectopy: None Summary of EKG Findings: EKG at 0013 reveals normal sinus rhythm with rate of 72 BPM, no acute changes, no ischemic changes. This EKG was reviewed and interpreted by Dr. Dash. Re-Evaluation - Re-Evaluation 1st re-eval Re-Evaluation Time: 01:55 Change: Improved Comment: I have discussed results with the patient and chest pain is resolved. Discussed symptoms that warrant immediate return to ED. I advised IBU as needed for CP and Benadryl as needed for anxiety. Chest Pain Course/Dx - Course Course Of Treatment: 29 y/o M presents with chest pain. Started yesterday morning. No signs or sx of acute illness. Patient very anxious appearing on arrival. Concerned about his heart because he had pericarditis a few months ago. Pt states he was initially on Rx strength anti-inflammatory which has run out. Today, hes been taking IBU for his chest pain without much relief. Physical exam essentially within normal limits other than he is very anxious appearing. Workup demonstrates no significant abnormalities, including normal WBC, lactic acid, and troponin. Mildly elevated Creatinine. Discussed at length with pt. Strongly advised him to f/u with PCP regarding anxiety. Pt states hes made an appt to see PCP in the near future. Pt wanted Rx for anxiety medications. Advised Benadryl PRN and coping mechanisms. Pt concerned about elevated BP. We had given him an extra dose of Metoprolol in the ED which effectively decreased BP. Pt wanted to re-start his Lisinopril or have his Metoprolol increased. Lisinopril had been stopped when he started anti- inflammatory for pericarditis. Advised pt that he should call PCPs office in the morning to discuss BP and chronic medications. F/u sooner for any worsening sx. - Diagnoses Provider Diagnoses: Chest pain, Anxiety Discharge ED - Sign-Out/Discharge Documenting (check all that apply): Patient Departure - Discharge Plan Condition: Stable Disposition: HOME Patient Education Materials: Chest Pain (ED), Anxiety (ED) Referrals: Landen Gomez MD [Primary Care Provider] - Additional Instructions: Take Ibuprofen as needed for your chest pain and Benadryl as needed for your anxiety. Please follow up with your primary care physician within three days. Please return to ED for any new or worsening symptoms. - Billing Disposition and Condition Condition: STABLE Disposition: Home - Attestation Statements Document Initiated by Scribe: Yes Documenting Scribe: Tiki Ames Provider For Whom Varun is Documenting (Include Credential): Stephanie Dash MD. Scribe Attestation: Tiki Griffith, scribed for Stephanie Dash MD. on 08/11/19 at 1929. Scribe Documentation Reviewed: Yes Provider Attestation: The documentation as recorded by the scribe, Tiki Ames accurately reflects the service I personally performed and the decisions made by me, Stephanie Dash MD. Status of Jayibe Document: Viewed
[2019-08-11 00:55] LABS: ABS Eosinophils 0.1 10^3/ul (0-0.6); ABS Lymphocytes 2.1 10^3/ul (1.0-4.8); ABS Monocytes 0.5 10^3/ul (0-0.8); ABS Neutrophils 2.6 10^3/ul (1.5-7.7); Eosinophil % 2.7 %; Hematocrit 38 % (42-52); Hemoglobin 13.1 g/dL (14.0-18.0); Lymphocyte % 39.4 %; Mean Corpuscular HGB Conc 35 g/dL (31-36); Mean Corpuscular Hemoglobin 29 pg (27-31); Mean Corpuscular Volume 84 fL (80-94); Mean Platelet Volume 9.4 fL (7.4-10.4); Platelet Count 188 10^3/uL (150-450); Red Blood Count 4.53 10^6 /uL (4.18-5.48); Red Cell Distribution Width 14 % (10-15); White Blood Count 5.3 10^3/uL (3.5-10.8)
[2019-08-11] MEDS: Metoprolol Tartrate TAB* 50 mg PO ONE (00:57)
[2019-08-11 01:02] LABS: INR 1.02 (0.82-1.09)
[2019-08-11 01:13] LABS: ALT 18 U/L (7-52); AST 18 U/L (13-39); Albumin 4.6 g/dL (3.2-5.2); Albumin/Globulin Ratio 1.7 (1-3); Alkaline Phosphatase 71 U/L (34-104); Anion Gap 7 mmol/L (2-11); BUN/Creatinine Ratio 11.5 (8-20); Blood Urea Nitrogen 15 mg/dL (6-24); CO2 Carbon Dioxide 28 mmol/L (22-32); Calcium 9.2 mg/dL (8.6-10.3); Chloride 104 mmol/L (101-111); EGFR African American 78.4 (>60); EGFR Non-African American 64.8 (>60); Globulin 2.7 g/dL (2-4); Glucose 96 mg/dL (70-100); Potassium 3.8 mmol/L (3.5-5.0); Sodium 139 mmol/L (135-145); Total Protein 7.3 g/dL (6.4-8.9)
[2019-08-11 01:27] LABS: Urine Appearance Clear; Urine Bilirubin Negative (Negative); Urine Blood 2+ (Negative); Urine Color Straw; Urine Glucose Negative (Negative); Urine Ketones Negative (Negative); Urine Nitrite Negative (Negative); Urine Protein Negative (Negative); Urine Specific Gravity 1.005 (1.010-1.030); Urine Urobilinogen Negative (Negative)
[2019-08-11 01:32] LABS: Urine Bacteria Absent (Absent); Urine Red Blood Cell Trace(0-2/hpf) (Absent); Urine White Blood Cell Absent (Absent)
[2019-08-11 01:41] LABS: Urine Benzodiazepine Screen None Detected (None Detect); Urine Opiates Screen None Detected (None Detect)
[2019-08-11 01:46] LABS: Alcohol < 10 mg/dL (<10)
[2019-08-11 02:01] LABS: TSH (Thyroid Stimulating Horm) 2.18 mcIU/mL (0.34-5.60)
[2019-08-11 02:28] LABS: Erythrocyte Sed Rate 10 mm/Hr (0-14)
[2019-08-11 02:49] VITALS: BP 141/97
== END 2019-08-11 02:00 | disposition home or self-care (01) ==
LOC: ED 00:10
DX: F41.9 Anxiety disorder, unspecified (principal); I10 Essential (primary) hypertension; F17.210 Nicotine dependence, cigarettes, uncomplicated; Z88.1 Allergy status to other antibiotic agents; Z79.899 Other long term (current) drug therapy
CPT/HCPCS: 36415; 71045; 80053; 80307; 80320; 81003; 81015; 83605; 83880; 84443; 84484; 85025; 85610; 85652; 93005; 99283; A9270-GY; G0480